=== PATIENT | male | born 1980 | race Caucasian/White ===

== ENCOUNTER 2018-03-03 22:08 | Emergency (ER) | payer SELFPAY ==
[2018-03-03 22:15] VITALS: BP 141/72; PULSE 91; RESP 20; TEMP 36.8; O2SAT 98
--- NOTE | 2018-03-03 22:19 | DI.RAD.S_ITS ---
PROCEDURE: XR CHEST 1V INDICATIONS: chest pain TECHNIQUE: One view of the chest was acquired. COMPARISON: None. FINDINGS: Surgical changes and devices: None. Lungs and pleura: No pleural effusions or pneumothorax. Lungs are clear. Mediastinum: Mediastinal contours appear normal. Heart size is normal. Bones and chest wall: No suspicious bony lesions. Overlying soft tissues appear unremarkable. IMPRESSION: No acute disease. Dictated by: Gonzalo Mckeon M.D. on 03/04/2018 at 7:05 Approved by: Gonzalo Mckeon M.D. on 03/04/2018 at 7:05
[2018-03-03 22:34] LABS: Add Manual Diff / Slide Review NO; Basophils Percent Auto 0.4 % (0-2); Eosinophils Percent Auto 0.9 % (2-4); Hematocrit 46.5 % (41-53); Hemoglobin 15.8 g/dL (13.5-17.5); INR 1.1 (0.9-1.3); Lymphocytes Percent Auto 37.5 % (25-40); Mean Corpuscular Hemoglobin 30.9 PG (26-34); Mean Corpuscular Volume 90.9 fL (80-100); Monocytes Percent Auto 7.8 % (3-14); Neutrophils Absolute Auto 3400 /uL (3000-5900); Neutrophils Percent Auto 53.4 % (50-75); Platelet Count 228 X10^3/uL (150-400); Prothrombin Time 11.6 SECONDS (10.1-12.7); Red Blood Cell Count 5.11 X10^6/uL (4.5-5.9); White Blood Cell Count 6.4 X10^3/uL (4.5-11.0)
[2018-03-03 22:36] LABS: PTT Partial Thromboplastin Tim 31 SECONDS (26.4-36.2)
[2018-03-03 22:38] LABS: Alanine Aminotransferase 34 IU/L (21-72); Albumin 4.7 g/dL (3.5-5.0); Albumin Globulin Ratio 1.6 (1.0-2.8); Alkaline Phosphatase 48 U/L (38-126); Aspartate Aminotransferase 29 IU/L (17-59); BUN Creatinine Ratio 12.9 (6-22); Bilirubin Total 0.6 mg/dL (0.2-1.3); Blood Urea Nitrogen 9 mg/dL (9-20); Calcium 9.6 mg/dL (8.4-10.2); Carbon Dioxide 29 mmol/L (22-32); Chloride 100 mmol/L (98-107); Creatine Kinase 239 U/L (55-170); Estimated Glomerular Filt Rate > 60.0 mL/min (>60); Glucose 84 mg/dL (70-100); HEMOLYSIS < 15 (0-50); Lipase 77 U/L (23-300); Potassium 3.7 mmol/L (3.4-5.1); Sodium 142 mmol/L (137-145); Total Protein 7.7 g/dL (6.3-8.2)
[2018-03-03 22:53] LABS: CKMB % Relative Index 0.9 % (1.5-5.0); Creatine Kinase MB 2.14 ng/mL (<2.37)
[2018-03-03 22:56] LABS: Troponin I < 0.012 ng/mL (0.01-0.034)
[2018-03-03 23:00] VITALS: BP 135/94; PULSE 68; RESP 12; O2SAT 99
[2018-03-03] MEDS: ONDANSETRON 4 MG/2 ML INJ IV (23:20)
[2018-03-03] MEDS: SODIUM CHLORIDE 0.9% 1,000 ML 1000 ML IV (23:20)
[2018-03-03] MEDS: KETOROLAC 60 MG/2 ML VIAL 15 MG IV (23:20)
[2018-03-03 23:49] VITALS: BP 121/94; PULSE 58; O2SAT 100
--- NOTE | 2018-03-04 04:54 | ED.CHESTPAIN ---
HPI - Chest Pain General Chief Complaint: Chest Pain Stated Complaint: Chest Pain Time Seen by Provider: 03/03/18 22:18 Source: patient Mode of arrival: ambulatory Limitations: no limitations History of Present Illness HPI narrative: 37-year-old smoker presents with a chief complaint of left anterior chest pain for the past few days. He states the pain is sharp and stabbing in nature but denies any provocation or palliation. He denies shortness of breath but states he is a bit nauseated and occasionally lightheaded. He recently had upper respiratory complaints including runny nose, sneezing, sore throat and cough but the symptoms are largely improved. He denies recent travel, injury or history of clots. MD complaint: chest pain Duration: intermittent Pain location: left chest Severity: mild Quality: sharp Pain radiation: none Relieving factors: nothing Exacerbating factors: nothing Context: recent illness Associated symptoms: cough Treatments prior to arrival chest pain: none Review of Systems Review of Systems All systems reviewed & are unremarkable except as noted in HPI and below Constitutional Denies chills, Denies fever(s), Denies lethargy and Denies weakness Eyes Denies change in vision, Denies eye discharge, Denies irritation and Denies loss of vision ENT Ears, Nose, Mouth, and Throat: Denies change in voice, Denies neck pain and Denies sore throat Cardiovascular Reports chest pain, Denies irregular heart rhythm, Denies lightheadedness, Denies palpitations, Denies dyspnea, Denies dyspnea on exertion and Denies orthopnea Respiratory Denies cough, Denies dyspnea, Denies dyspnea on exertion and Denies wheezing Gastrointestinal Gastrointestinal: Denies abdominal pain, Denies change in bowel habits, Denies diarrhea, Denies nausea and Denies vomiting Genitourinary Denies hematuria, Denies flank pain, Denies urinary incontinence and Denies urinary urgency Musculoskeletal Denies neck pain Integumentary/Breasts Denies pruritus, Denies erythema, Denies rash and Denies wounds Neurologic Denies confusion, Denies loss of vision and Denies weakness Psychiatric Denies anxiety, Denies confusion, Denies depression, Denies homicidal ideation and Denies suicidal ideation Endocrine Denies palpitations Hematologic/Lymphatic Denies easy bruising Allergic/Immunologic Denies wheezing [facility] Social History Smoking Status: Current every day smoker Exam Narrative Exam Narrative: 37-year-old male resting comfortably, a bit anxious but not in obvious distress Initial Vital Signs Initial Vital Signs: Vital Signs Temperature 98.2 F 03/03/18 22:15 Pulse Rate 91 H 03/03/18 22:15 Respiratory Rate 20 03/03/18 22:15 Blood Pressure 141/72 H 03/03/18 22:15 Pulse Oximetry 98 03/03/18 22:15 Const General: cooperative and well developed Nutritional Appearance: well nourished Orientation: alert, awake, oriented x3 and not confused [facility] Head: normocephalic and atraumatic Ears: external ears normal and TM's normal bilaterally Nose: external nose normal and No nasal discharge Face and sinus: sinuses nontender, face symmetric, no sinus tenderness and No dry mucous membranes Mouth: oral mucosae normal and moist mucous membranes Teeth and gingiva: dentition normal Throat: tonsils normal and uvula midline Eyes General: appearance normal, both eyes and all related structures Eyelids: eyelids normal Conjunctivae: conjunctivae normal Sclera: sclerae normal Pupils: PERRL EOM: EOM intact bilaterally Neck Neck: normal visual inspection, trachea midline, No lymphadenopathy, No midline deformity and No JVD Lymphatic: No lymphedema Chest Chest: normal inspection of the chest Resp Effort & Inspection: normal respiratory effort, able to speak in complete sentences, no respiratory distress and no use of accessory muscles Auscultation: clear to auscultation bilaterally, no rales, no rhonchi and no wheezes Cardio Rate: regular rate Rhythm: regular rhythm Heart Sounds: no click, no gallops, no murmurs and no rubs Pulses: normal peripheral pulses GI Inspection: non-distended Palpation: soft, no hepatosplenomegaly, No guarding, No pulsatile mass and No tender Auscultation: normal bowel sounds Back/Spine/Pelvis Back: No CVA tenderness Cervical Spine: cervical ROM normal and No pain with cervical ROM Thoracic/Lumbar Spine: thoracic and lumbar spine normal to inspection Skin General: no rashes or lesions noted, No jaundice and No petechiae Neuro General: alert, oriented x3, gait normal and no focal motor deficits Speech: speech normal Extrem General: full ROM, no clubbing, cyanosis or edema, no pedal edema and no calf tenderness Psych Appearance: well kempt Mental Status: mental status grossly normal Attitude: cooperative Thought Content: normal and suicidality Judgment: judgment good Scores HEART Score Heart Score history: Slightly Suspicious Heart Score EKG: Normal Heart Score Age: < 45 years old Heart Score risk factors: 1-2 risk factors Heart Score troponin: < or = to normal limit Heart Score Total: 1 Course Orders Ordered: ED Orders 03/03/18 22:19 XR chest 1V Stat EKG-12 Lead Stat 03/03/18 22:20 Complete Blood Count AUTO DIFF Stat Comprehensive Metabolic Panel Stat Lipase Stat Partial Thromboplastin Time Stat Prothrombin Time INR Stat Troponin & CK Cardiac Panel Stat Discontinued Medications Sodium Chloride (Normal Saline 0.9%) 1,000 mls @ 1,000 mls/hr IV BOLUS ONE Stop: 03/04/18 00:05 Last Infusion: 03/03/18 23:58 Dose: 0 mls/hr Admin: 03/03/18 23:20 Dose: 1,000 mls/hr Ketorolac Tromethamine (Toradol) 15 mg IV NOW ONE Stop: 03/03/18 23:07 Last Admin: 03/03/18 23:20 Dose: 15 mg Ondansetron HCl (Zofran) 4 mg IV Q4HR PRN PRN Reason: Nausea And Vomiting Last Admin: 03/03/18 23:20 Dose: 4 mg Vital Signs - 8 hr 03/03/18 22:15 03/03/18 23:00 03/03/18 23:49 Temperature 98.2 F Pulse Rate 91 H 68 58 L Respiratory Rate 20 12 Blood Pressure 141/72 H Blood Pressure [Left Arm] 135/94 H 121/94 H Pulse Oximetry 98 99 100 MDM - Chest Pain Differential Diagnosis Likely fracture of rib, pneumothorax, stable angina, unstable angina pectoris, atypical chest pain, st elevation myocardial infarction, costochondritis and chest pain Medical Records Data Attestation: I reviewed the patient's medical records. Lab Data Attestation: I reviewed the patient's lab results. Result diagrams: 03/03/18 22:20 03/03/18 22:20 Lab Results 03/03/18 03/03/18 03/03/18 Range/Units 22:20 22:20 22:20 WBC 6.4 (4.5-11.0) X10^3/uL RBC 5.11 (4.5-5.9) X10^6/uL Hgb 15.8 (13.5-17.5) g/dL Hct 46.5 (41-53) % MCV 90.9 (80-100) fL MCH 30.9 (26-34) PG MCHC 34.0 (30-36) % RDW 13.0 (11.6-14.8) % Plt Count 228 (150-400) X10^3/uL Neut % (Auto) 53.4 (50-75) % Lymph % (Auto) 37.5 (25-40) % [place] % (Auto) 7.8 (3-14) % Eos % (Auto) 0.9 L (2-4) % Baso % (Auto) 0.4 (0-2) % Neut # (Auto) 3400 (5996-6823) /uL PT 11.6 (10.1-12.7) SECONDS INR 1.1 (0.9-1.3) APTT 31 (26.4-36.2) SECONDS Sodium 142 (137-145) mmol/L Potassium 3.7 (3.4-5.1) mmol/L Chloride 100 (98-107) mmol/L Carbon Dioxide 29 (22-32) mmol/L BUN 9 (9-20) mg/dL Creatinine 0.70 (0.66-1.25) mg/dL Estimated GFR > 60.0 (>60) mL/min BUN/Creatinine Ratio 12.9 (6-22) Glucose 84 (70-100) mg/dL Calcium 9.6 (8.4-10.2) mg/dL Total Bilirubin 0.6 (0.2-1.3) mg/dL AST 29 (17-59) IU/L ALT 34 (21-72) IU/L Alkaline Phosphatase 48 (38-126) U/L Total Creatine Kinase 239 H (55-170) U/L CK-MB (CK-2) 2.14 (<2.37) ng/mL CK-MB (CK-2) Rel Index 0.9 L (1.5-5.0) % Troponin I < 0.012 (0.01-0.034) ng/mL Total Protein 7.7 (6.3-8.2) g/dL Albumin 4.7 (3.5-5.0) g/dL Globulin 3.0 (1.7-4.1) g/dL Albumin/Globulin Ratio 1.6 (1.0-2.8) Lipase 77 (23-300) U/L Imaging Data Chest x-ray: Attestation: I personally reviewed and interpreted this imaging study as follows: My impression: NAP ECG Data Attestation: I personally reviewed and interpreted this ECG as follows: Prior ECG tracings: not available for review Interpretation: EKG is normal sinus rhythm and free of any signs of ischemia or ectopy. Discharge Plan Departure Patient Disposition: Home Clinical Impression: Atypical chest pain Discharge Date/Time: 03/03/18 23:59 Interventions: ED Discharge Assessment Last Done: 03/03/18 23:59 Instructions: DI for Atypical Chest Pain Activity Restrictions/Additional Instructions: *You have been diagnosed with [ atypical chest pain ] *What to do: *Take medications as directed: Tylenol or Motrin for pain *Follow up with your primary care provider in 2-3 days, call for an appointment. Let them know you were seen in the Emergency Department and that we ask that you be seen in follow up *Return to ER if you should have any new, worsening or concerning symptoms Referrals: Jamar Cuellar MD [Primary Care Provider] -
== END 2018-03-03 23:59 | disposition home or self-care (01) ==
PROVIDERS: Emergency Provider Emergency Medicine; Family Provider Family Medicine; PCP Family Medicine
DX: R07.89 Other chest pain (principal)
CPT/HCPCS: 36591; 71045; 80053; 82550; 82553; 83690; 84484; 85025; 85610; 85730; 93005; 96361; 96374; 96375; 99283; 99285; J1885; J2405

== ENCOUNTER 2020-02-27 10:49 | Observation (INO) | payer OTHER, SELFPAY ==
[2020-02-27] VITALS (26 sets, daily range): BP systolic 93–148; BP diastolic 43–85; PULSE 55–74; RESP 12–24; TEMP 36.6–37.5; O2SAT 91–100; BMI 25.0
--- NOTE | 2020-02-27 11:16 | ED_ITS ---
HPI - Abdominal Pain <OMAR Peraza- - Last Filed: 02/27/20 16:15> General Chief Complaint: Abdominal Pain Stated Complaint: vomiting/ stomach pain unable to keep down Time Seen by Provider: 02/27/20 11:01 Source: patient Mode of arrival: Wheelchair Limitations: no limitations History of Present Illness HPI narrative: The patient is a 39-year-old male current everyday smoker who pre sents with a chief complaint of abdominal pain for the past 2-3 days. He states it is right in the center of his gut, periumbilical. He denies any fevers muscle aches or chills. He states he is vomiting so often that he cannot keep down any food or fluids. Off of his on Friday. States he has vomited too many times to count. He denies any medical history other than old diagnosis of hypertension for which she takes no medications and states he takes Synthroid. His primary care provider is Dr. Cuellar, he currently lives on [address] which is why he delayed care for several days. He states the pain comes and goes, when his pain is present he is in excruciating 10/10 pain. He took Pepto-Bismol yesterday to try to feel better. Related Data Home Medications Medication Instructions Recorded Confirmed levothyroxine 100 mcg PO QAM 02/27/20 02/27/20 Allergies Allergy/AdvReac Type Severity Reaction Status Date / Time kelsy Allergy Verified 02/27/20 14:28 Review of Systems <XAVIER PerazaP- - Last Filed: 02/27/20 16:15> Review of Systems Narrative: GENERAL: Denies chills, fatigue, malaise, fever, sweats. HEENT: Denies sinus pain, ear pain, sore throat, difficulty swallowing, dizziness. RESPIRATORY: Denies dyspnea, cough, wheezing, hemoptysis, sputum. CARDIOVASCULAR: Denies chest pain, palpitations, orthopnea, edema, GASTROINTESTINAL: See HPI : Denies dysuria, frequency, incontinence, hematuria, urinary retention. MUSCULOSKELETAL: denies weakness, joint pain, or bony pain SKIN: Denies rash, skin lesions, or other NEUROLOGIC: Denies weakness, headache, numbness, change in speech, confusion, seizures, incoordination. PSYCHIATRIC: No concerning psychosocial issues. 12 point review of systems is negative except for those stated above Patient History <LAVINIA Peraza - Last Filed: 02/27/20 16:15> Medical History Hypothyroid (Acute) Social History household members: spouse Smoking Status: Current every day smoker Smoking Status: Current every day smoker Substance Use Type: marijuana Exam <LAVINIA Peraza - Last Filed: 02/27/20 16:15> Narrative Exam Narrative: GENERAL: This is a well-nourished, well-developed patient, appears uncomfortable HEAD: Atraumatic. Normocephalic. No temporal or scalp tenderness. EYES: Pupils equal round and reactive. Extraocular motions intact. No scleral icterus. No injection or drainage. ENT: Nose without bleeding, purulent drainage or septal hematoma. Throat without erythema, tonsillar hypertrophy or exudate. Uvula midline. Airway patent. NECK: Trachea midline. No JVD or lymphadenopathy. Supple, nontender, no menin geal signs. CARDIOVASCULAR: Regular rate and rhythm RESPIRATORY: Clear to auscultation. Breath sounds equal bilaterally. No wheezes, rales, or rhonchi. No increased respiratory effort. No accessory muscle use. GASTROINTESTINAL: Abdomen flat, tender to palpation with periumbilical guarding, guarding all quadrants, no palpable masses. Acute abdomen noted. EXTREMITIES: No clubbing, cyanosis, or edema. No joint tenderness, effusion, or edema noted. BACK: Nontender without deformity or crepitance. No flank tenderness. NEURO: AOx3. SKIN: No rash or erythema on visible skin Initial Vital Signs Initial Vital Signs: Vital Signs Temperature 98.4 F 02/27/20 11:00 Pulse Rate 62 02/27/20 11:00 Respiratory Rate 16 02/27/20 11:00 Blood Pressure 148/85 H 02/27/20 11:00 Pulse Oximetry 100 02/27/20 11:00 <Shelton Vale DO - Last Filed: 02/27/20 17:01> Initial Vital Signs Initial Vital Signs: Vital Signs Temperature 98.4 F 02/27/20 11:00 Pulse Rate 62 02/27/20 11:00 Respiratory Rate 16 02/27/20 11:00 Blood Pressure 148/85 H 02/27/20 11:00 Pulse Oximetry 100 02/27/20 11:00 Course <Breanne FitzgeraldOMAR- - Last Filed: 02/27/20 16:15> Orders Ordered: ED Orders 02/27/20 11:14 EKG-12 Lead Stat 02/27/20 11:32 Amylase Stat Complete Blood Count AUTO DIFF Stat Comprehensive Metabolic Panel Stat Lactate (Lactic Acid) Stat Lipase Stat 02/27/20 11:50 CT abdomen pelvis w con Stat 02/27/20 13:25 COVID19 -ED/INPAT/OR/L&D Stat Acetaminophen (Tylenol) 650 mg PO Q6HR PRN PRN Reason: Pain, Mild (1-3) Diphenhydramine HCl (Benadryl) 25 mg IV Q6HR PRN PRN Reason: Itching Docusate Sodium (Colace) 100 mg PO BID PRN PRN Reason: Constipation Heparin Sodium (Porcine) (Heparin) 5,000 unit SUBCUT BID ANNIE Hydromorphone HCl (Dilaudid) 0.5 mg IV Q4HR PRN PRN Reason: Breakthrough Pain Sodium Chloride (Normal Saline 0.9%) 1,000 mls @ 100 mls/hr IV CONT ANNIE Ketorolac Tromethamine (Toradol) 15 mg IV Q6H PRN PRN Reason: Pain, Moderate (4-6) Stop: 03/03/20 15:58 Naloxone HCl (Narcan) 0.2 mg IV Q2MIN PRN PRN Reason: Opiate Reversal Ondansetron HCl (Zofran) 4 mg IV Q4HR PRN PRN Reason: Nausea And Vomiting Oxycodone HCl (Percolone) 5 mg PO Q6HR PRN PRN Reason: Pain, Moderate (4-6) Discontinued Medications Bupivacaine HCl/Epinephrine Bitart (Sensorcaine 0.25% W/ Epi (Pf)) 30 ml INJ NOW ONE Stop: 02/27/20 14:56 Last Admin: 02/27/20 14:55 Dose: 30 ml Documented by: CELESTE Diphenhydramine HCl (Benadryl) 25 mg IV NOW ONE Stop: 02/27/20 11:50 Last Admin: 02/27/20 12:44 Dose: 25 mg Documented by: KRYSTINA Fentanyl (Sublimaze) 0 mcg IV Q5M PRN PRN Reason: Pain, Moderate (4-6) Hydromorphone HCl (Dilaudid) 1 mg IV NOW ONE Stop: 02/27/20 12:39 Last Admin: 02/27/20 12:44 Dose: 1 mg Documented by: KRYSTINA Hydromorphone HCl (Dilaudid) 0 mg IV Q5M PRN PRN Reason: Pain, Severe (7-10) Sodium Chloride (Normal Saline 0.9%) 1,000 mls @ 1,000 mls/hr IV BOLUS ONE Stop: 02/27/20 12:13 Last Infusion: 02/27/20 14:08 Dose: 0 mls/hr Documented by: Admin: 02/27/20 11:40 Dose: 1,000 mls/hr Documented by: KRYSTINA Piperacillin/Tazobactam/Dextrose (Zosyn) 3.375 gm in 50 mls @ 100 mls/hr IV NOW ONE Stop: 02/27/20 14:05 Last Infusion: 02/27/20 14:18 Dose: 0 mls/hr Documented by: Admin: 02/27/20 13:44 Dose: 100 mls/hr Documented by: KRYSTINA Sodium Chloride (Normal Saline 0.9%) 1,000 mls @ 1,000 mls/hr IV BOLUS ONE Stop: 02/27/20 14:51 Last Admin: 02/27/20 14:08 Dose: Not Given Documented by: KRYSTINA Lactated Ringer's (Lactated Ringers) 1,000 mls @ 42 mls/hr IV CONT ANNIE Sodium Chloride (Normal Saline 0.9%) 1,000 mls @ 84 mls/hr IV CONT ANNIE Last Infusion: 02/27/20 16:58 Dose: 0 mls/hr Documented by: Admin: 02/27/20 14:21 Dose: 84 mls/hr Documented by: JAKUB Metoclopramide HCl (Reglan) 10 mg IV NOW ONE Stop: 02/27/20 11:49 Last Admin: 02/27/20 12:45 Dose: 10 mg Documented by: KRYSTINA Metoclopramide HCl (Reglan) 10 mg IV NOW PRN PRN Reason: Nausea And Vomiting Morphine Sulfate (Morphine) 4 mg IV NOW ONE Stop: 02/27/20 11:15 Last Admin: 02/27/20 11:40 Dose: 4 mg Documented by: KRYSTINA Ondansetron HCl (Zofran) 4 mg IV NOW ONE Stop: 02/27/20 11:15 Last Admin: 02/27/20 11:40 Dose: 4 mg Documented by: KRYSTINA Ondansetron HCl (Zofran) 4 mg IV NOW PRN PRN Reason: Nausea And Vomiting Oxycodone/Acetaminophen (Percocet 5/325) 1 tab PO PACUNOW PRN PRN Reason: Mild or Moderate Pain Pantoprazole Sodium (Protonix) 40 mg IV NOW ONE Stop: 02/27/20 11:28 Last Admin: 02/27/20 11:40 Dose: 40 mg Documented by: KRYSTINA Vital Signs Vital signs: Vital Signs - 8 hr 02/27/20 11:00 02/27/20 12:14 02/27/20 12:30 Temperature 98.4 F Pulse Rate 62 66 63 Respiratory Rate 16 12 16 Blood Pressure 148/85 H 109/56 L Pulse Oximetry 100 100 97 02/27/20 12:34 02/27/20 13:16 02/27/20 13:17 Temperature Pulse Rate 64 68 61 Respiratory Rate 20 12 Blood Pressure 122/67 131/76 Pulse Oximetry 100 100 02/27/20 13:30 02/27/20 14:00 02/27/20 14:21 Temperature 99 F Pulse Rate 70 63 60 Respiratory Rate 23 24 17 Blood Pressure 105/52 L 121/68 Pulse Oximetry 97 100 100 <Shelton Vale DO - Last Filed: 02/27/20 17:01> Orders Ordered: ED Orders 02/27/20 11:14 EKG-12 Lead Stat 02/27/20 11:32 Amylase Stat Complete Blood Count AUTO DIFF Stat Comprehensive Metabolic Panel Stat Lactate (Lactic Acid) Stat Lipase Stat 02/27/20 11:50 CT abdomen pelvis w con Stat 02/27/20 13:25 COVID19 -ED/INPAT/OR/L&D Stat Acetaminophen (Tylenol) 650 mg PO Q6HR PRN PRN Reason: Pain, Mild (1-3) Diphenhydramine HCl (Benadryl) 25 mg IV Q6HR PRN PRN Reason: Itching Docusate Sodium (Colace) 100 mg PO BID PRN PRN Reason: Constipation Heparin Sodium (Porcine) (Heparin) 5,000 unit SUBCUT BID ANNIE Hydromorphone HCl (Dilaudid) 0.5 mg IV Q4HR PRN PRN Reason: Breakthrough Pain Sodium Chloride (Normal Saline 0.9%) 1,000 mls @ 100 mls/hr IV CONT ANNIE Ketorolac Tromethamine (Toradol) 15 mg IV Q6H PRN PRN Reason: Pain, Moderate (4-6) Stop: 03/03/20 15:58 Naloxone HCl (Narcan) 0.2 mg IV Q2MIN PRN PRN Reason: Opiate Reversal Ondansetron HCl (Zofran) 4 mg IV Q4HR PRN PRN Reason: Nausea And Vomiting Oxycodone HCl (Percolone) 5 mg PO Q6HR PRN PRN Reason: Pain, Moderate (4-6) Discontinued Medications Bupivacaine HCl/Epinephrine Bitart (Sensorcaine 0.25% W/ Epi (Pf)) 30 ml INJ NOW ONE Stop: 02/27/20 14:56 Last Admin: 02/27/20 14:55 Dose: 30 ml Documented by: CELESTE Diphenhydramine HCl (Benadryl) 25 mg IV NOW ONE Stop: 02/27/20 11:50 Last Admin: 02/27/20 12:44 Dose: 25 mg Documented by: KRYSTINA Fentanyl (Sublimaze) 0 mcg IV Q5M PRN PRN Reason: Pain, Moderate (4-6) Hydromorphone HCl (Dilaudid) 1 mg IV NOW ONE Stop: 02/27/20 12:39 Last Admin: 02/27/20 12:44 Dose: 1 mg Documented by: KRYSTINA Hydromorphone HCl (Dilaudid) 0 mg IV Q5M PRN PRN Reason: Pain, Severe (7-10) Sodium Chloride (Normal Saline 0.9%) 1,000 mls @ 1,000 mls/hr IV BOLUS ONE Stop: 02/27/20 12:13 Last Infusion: 02/27/20 14:08 Dose: 0 mls/hr Documented by: Admin: 02/27/20 11:40 Dose: 1,000 mls/hr Documented by: KRYSTINA Piperacillin/Tazobactam/Dextrose (Zosyn) 3.375 gm in 50 mls @ 100 mls/hr IV NOW ONE Stop: 02/27/20 14:05 Last Infusion: 02/27/20 14:18 Dose: 0 mls/hr Documented by: Admin: 02/27/20 13:44 Dose: 100 mls/hr Documented by: KRYSTINA Sodium Chloride (Normal Saline 0.9%) 1,000 mls @ 1,000 mls/hr IV BOLUS ONE Stop: 02/27/20 14:51 Last Admin: 02/27/20 14:08 Dose: Not Given Documented by: KRYSTINA Lactated Ringer's (Lactated Ringers) 1,000 mls @ 42 mls/hr IV CONT ANNIE Sodium Chloride (Normal Saline 0.9%) 1,000 mls @ 84 mls/hr IV CONT ANNIE Last Infusion: 02/27/20 16:58 Dose: 0 mls/hr Documented by: Admin: 02/27/20 14:21 Dose: 84 mls/hr Documented by: JAKUB Metoclopramide HCl (Reglan) 10 mg IV NOW ONE Stop: 02/27/20 11:49 Last Admin: 02/27/20 12:45 Dose: 10 mg Documented by: KRYSTINA Metoclopramide HCl (Reglan) 10 mg IV NOW PRN PRN Reason: Nausea And Vomiting Morphine Sulfate (Morphine) 4 mg IV NOW ONE Stop: 02/27/20 11:15 Last Admin: 02/27/20 11:40 Dose: 4 mg Documented by: KRYSTINA Ondansetron HCl (Zofran) 4 mg IV NOW ONE Stop: 02/27/20 11:15 Last Admin: 02/27/20 11:40 Dose: 4 mg Documented by: KRYSTINA Ondansetron HCl (Zofran) 4 mg IV NOW PRN PRN Reason: Nausea And Vomiting Oxycodone/Acetaminophen (Percocet 5/325) 1 tab PO PACUNOW PRN PRN Reason: Mild or Moderate Pain Pantoprazole Sodium (Protonix) 40 mg IV NOW ONE Stop: 02/27/20 11:28 Last Admin: 02/27/20 11:40 Dose: 40 mg Documented by: KRYSTINA Vital Signs Vital signs: Vital Signs - 8 hr 02/27/20 11:00 02/27/20 12:14 02/27/20 12:30 Temperature 98.4 F Pulse Rate 62 66 63 Respiratory Rate 16 12 16 Blood Pressure 148/85 H 109/56 L Pulse Oximetry 100 100 97 02/27/20 12:34 02/27/20 13:16 02/27/20 13:17 Temperature Pulse Rate 64 68 61 Respiratory Rate 20 12 Blood Pressure 122/67 131/76 Pulse Oximetry 100 100 02/27/20 13:30 02/27/20 14:00 02/27/20 14:21 Temperature 99 F Pulse Rate 70 63 60 Respiratory Rate 23 24 17 Blood Pressure 105/52 L 121/68 Pulse Oximetry 97 100 100 MDM - Abdominal Pain <Breanne Fitzgerald, POLICY ISSUE CLERK- - Last Filed: 02/27/20 16:15> Differential Diagnosis Differential diagnosis: Likely abdominal pain, acute appendicitis, constipation, pancreatitis and small bowel obstruction Lab Data Attestation: I reviewed the patient's lab results. Result diagrams: 02/27/20 11:32 02/27/20 11:32 Labs: Lab Results 02/27/20 02/27/20 02/27/20 Range/Units 11:32 11:32 11:32 WBC 14.0 H (4.5-11.0) X10^3/uL RBC 5.21 (4.5-5.9) X10^6/uL Hgb 16.0 (13.5-17.5) g/dL Hct 47.4 (41-53) % MCV 90.9 (80-100) fL MCH 30.7 (26-34) PG MCHC 33.7 (30-36) % RDW 12.5 (11.6-14.8) % Plt Count 313 (150-400) X10^3/uL Neut % (Auto) 84.2 H (50-75) % Lymph % (Auto) 8.3 L (25-40) % Coleman % (Auto) 7.2 (3-14) % Eos % (Auto) 0.0 L (2-4) % Baso % (Auto) 0.3 (0-2) % Neut # (Auto) 01575 H (3785-5671) /uL Lymph # (Auto) 1200 (3628-9239) /uL Coleman # (Auto) 1000 H (0-900) /uL Eos # (Auto) 0 (0-450) /uL Baso # (Auto) 0 (0-100) /uL Sodium 134 L (137-145) mmol/L Potassium 3.7 (3.4-5.1) mmol/L Chloride 90 L (98-107) mmol/L Carbon Dioxide 28 (22-32) mmol/L BUN 29 H (9-20) mg/dL Creatinine 0.82 (0.66-1.25) mg/dL Estimated GFR > 60.0 (>60) mL/min BUN/Creatinine Ratio 35.4 H (6-22) Glucose 122 H (70-100) mg/dL Lactate 2.7 H (0.7-2.1) mmol/L Calcium 9.8 (8.4-10.2) mg/dL Total Bilirubin 0.9 (0.2-1.3) mg/dL AST 47 (17-59) IU/L ALT 35 (<50) IU/L Alkaline Phosphatase 57 (38-126) U/L Total Protein 8.9 H (6.3-8.2) g/dL Albumin 5.1 H (3.5-5.0) g/dL Globulin 3.8 (1.7-4.1) g/dL Albumin/Globulin Ratio 1.3 (1.0-2.8) Amylase 118 H (30-110) U/L Lipase 209 (23-300) U/L COVID-19 PCR (Negative) 02/27/20 Range/Units 13:25 WBC (4.5-11.0) X10^3/uL RBC (4.5-5.9) X10^6/uL Hgb (13.5-17.5) g/dL Hct (41-53) % MCV (80-100) fL MCH (26-34) PG MCHC (30-36) % RDW (11.6-14.8) % Plt Count (150-400) X10^3/uL Neut % (Auto) (50-75) % Lymph % (Auto) (25-40) % Coleman % (Auto) (3-14) % Eos % (Auto) (2-4) % Baso % (Auto) (0-2) % Neut # (Auto) (7217-7157) /uL Lymph # (Auto) (4081-0166) /uL Coleman # (Auto) (0-900) /uL Eos # (Auto) (0-450) /uL Baso # (Auto) (0-100) /uL Sodium (137-145) mmol/L Potassium (3.4-5.1) mmol/L Chloride (98-107) mmol/L Carbon Dioxide (22-32) mmol/L BUN (9-20) mg/dL Creatinine (0.66-1.25) mg/dL Estimated GFR (>60) mL/min BUN/Creatinine Ratio (6-22) Glucose (70-100) mg/dL Lactate (0.7-2.1) mmol/L Calcium (8.4-10.2) mg/dL Total Bilirubin (0.2-1.3) mg/dL AST (17-59) IU/L ALT (<50) IU/L Alkaline Phosphatase (38-126) U/L Total Protein (6.3-8.2) g/dL Albumin (3.5-5.0) g/dL Globulin (1.7-4.1) g/dL Albumin/Globulin Ratio (1.0-2.8) Amylase (30-110) U/L Lipase (23-300) U/L COVID-19 PCR Negative (Negative) Point of care testing: Urine Dip Bedside Urine Glucose Negative Bedside Urine Bilirubin + 1 Bedside Urine Ketone ++ 40 Urine Specific [place] 1.025 Bedside Urine Occult Blood +/- Bedside Urine pH 6.0 Bedside Urine Protein + 30 Bedside Urine Urobilinogen - Negative Bedside Urine Nitrite - Negative Bedside Urine Leukocytes - Negative Esterase Imaging Data CT scan - abdomen/pelvis: Radiologist's Impression: [address] [place], [place] [id number] CT Scan Report Signed Patient: Devante Pina [facility]#: [id number] : 1980Acct:[id number] Age/Sex: 39 / MDate of Service: 02/27/20 Loc: ED Accession Number: [id number] Procedure: CT abdomen pelvis w con Ordering Provider: Breanne Fitzgerald POLICY ISSUE CLERK- PROCEDURE: CT ABDOMEN PELVIS W CON INDICATIONS: abd pain, vomiting TECHNIQUE: After the administration of intravenous contrast, 5 mm thick sections acquired f rom the diaphragm to the symphysis. 5 mm coronal and sagittal reformats were acquired. For radiation dose reduction, the following was used: automated exposure control, adjustment of mA and/or kV according to patient size. COMPARISON: [facility], CR, XR CHEST 1V, 03/03/2018, 22:21. FINDINGS: Image quality: Excellent. ABDOMEN: Lung bases: Lung bases are clear. Heart size is normal. Solid organs: Liver is normal in size and enhancement. Gallbladder demonstrates no significant abnormality. Biliary system is non dilated. Pancreas enhances normally. Spleen is normal in size and enhancement. No adrenal nodules. Kidneys demonstrate normal size and enhancement, without hydronephrosis. Peritoneum and bowel: Dilated fluid-filled loops are seen within the central ab domen inferiorly, which measure up to 3.7 cm. Proximal and distal to this, the small bowel loops demonstrate normal caliber. There is a potential swirl of mesenteric vessels seen adjacent to the prominent loops of bowel. No madeleine bowel wall thickening can be seen. No colonic abnormality is seen. No free air or significant free fluid can be seen. No loculated abscess is seen. Nodes and vessels: No retroperitoneal or mesenteric adenopathy by size criteria. Aorta and inferior vena cava are normal in size. The SMA is patent. Normal flow is seen within the portal vein. Miscellaneous: No ventral hernias. PELVIS: Genitourinary: Bladder wall thickness is normal. Miscellaneous: No inguinal hernias or adenopathy. Bones: No suspicious bony lesions. No vertebral body compression fractures. There is transitional lumbar anatomy, with L5 level that is highly sacralized on the left side. Mild levoconvex scoliotic curvature is noted. IMPRESSION: Prominent loops of fluid-filled small bowel can be seen within the central mid abdomen. Please consider internal hernia. 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 Dictated by: Natan Garcia M.D. on 02/27/2020 at 11:15 Approved by: Natan Garcia M.D. on 02/27/2020 at 11:27 ECG Data Attestation: I personally reviewed and interpreted this ECG as follows: Interpretation: Sinus rhythm. Ventricular rate 65. P.r. interval 114. MDM Narrative Medical decision making narrative: The patient is a 39-year-old male who presents with a chief complaint of abdominal pain difficulty keeping anything down since Friday. He is noted to have an acute abdomen on exam, leukocytosis to 14, elevated lactate at 2.7. CT shows concern for internal hernia. Spoke with Dr. Gómez who came to evaluate the patient and elected to bring him to the operating room. Coronavirus test came back negative. Patient was given IV fluids in the emergency department as well as pain and nausea medications. States understanding and appreciation for care. He has been hemodynamically stable throughout his stay, afebrile, normotensive. Patient transferred to OR staff at 2:10 p.m.. <Shelton Vale DO - Last Filed: 02/27/20 17:01> Lab Data Labs: Lab Results 02/27/20 02/27/20 02/27/20 Range/Units 11:32 11:32 11:32 WBC 14.0 H (4.5-11.0) X10^3/uL RBC 5.21 (4.5-5.9) X10^6/uL Hgb 16.0 (13.5-17.5) g/dL Hct 47.4 (41-53) % MCV 90.9 (80-100) fL MCH 30.7 (26-34) PG MCHC 33.7 (30-36) % RDW 12.5 (11.6-14.8) % Plt Count 313 (150-400) X10^3/uL Neut % (Auto) 84.2 H (50-75) % Lymph % (Auto) 8.3 L (25-40) % Coleman % (Auto) 7.2 (3-14) % Eos % (Auto) 0.0 L (2-4) % Baso % (Auto) 0.3 (0-2) % Neut # (Auto) 27907 H (7256-7557) /uL Lymph # (Auto) 1200 (6146-3815) /uL Coleman # (Auto) 1000 H (0-900) /uL Eos # (Auto) 0 (0-450) /uL Baso # (Auto) 0 (0-100) /uL Sodium 134 L (137-145) mmol/L Potassium 3.7 (3.4-5.1) mmol/L Chloride 90 L (98-107) mmol/L Carbon Dioxide 28 (22-32) mmol/L BUN 29 H (9-20) mg/dL Creatinine 0.82 (0.66-1.25) mg/dL Estimated GFR > 60.0 (>60) mL/min BUN/Creatinine Ratio 35.4 H (6-22) Glucose 122 H (70-100) mg/dL Lactate 2.7 H (0.7-2.1) mmol/L Calcium 9.8 (8.4-10.2) mg/dL Total Bilirubin 0.9 (0.2-1.3) mg/dL AST 47 (17-59) IU/L ALT 35 (<50) IU/L Alkaline Phosphatase 57 (38-126) U/L Total Protein 8.9 H (6.3-8.2) g/dL Albumin 5.1 H (3.5-5.0) g/dL Globulin 3.8 (1.7-4.1) g/dL Albumin/Globulin Ratio 1.3 (1.0-2.8) Amylase 118 H (30-110) U/L Lipase 209 (23-300) U/L COVID-19 PCR (Negative) 02/27/20 Range/Units 13:25 WBC (4.5-11.0) X10^3/uL RBC (4.5-5.9) X10^6/uL Hgb (13.5-17.5) g/dL Hct (41-53) % MCV (80-100) fL MCH (26-34) PG MCHC (30-36) % RDW (11.6-14.8) % Plt Count (150-400) X10^3/uL Neut % (Auto) (50-75) % Lymph % (Auto) (25-40) % Coleman % (Auto) (3-14) % Eos % (Auto) (2-4) % Baso % (Auto) (0-2) % Neut # (Auto) (6483-5903) /uL Lymph # (Auto) (5337-0591) /uL Coleman # (Auto) (0-900) /uL Eos # (Auto) (0-450) /uL Baso # (Auto) (0-100) /uL Sodium (137-145) mmol/L Potassium (3.4-5.1) mmol/L Chloride (98-107) mmol/L Carbon Dioxide (22-32) mmol/L BUN (9-20) mg/dL Creatinine (0.66-1.25) mg/dL Estimated GFR (>60) mL/min BUN/Creatinine Ratio (6-22) Glucose (70-100) mg/dL Lactate (0.7-2.1) mmol/L Calcium (8.4-10.2) mg/dL Total Bilirubin (0.2-1.3) mg/dL AST (17-59) IU/L ALT (<50) IU/L Alkaline Phosphatase (38-126) U/L Total Protein (6.3-8.2) g/dL Albumin (3.5-5.0) g/dL Globulin (1.7-4.1) g/dL Albumin/Globulin Ratio (1.0-2.8) Amylase (30-110) U/L Lipase (23-300) U/L COVID-19 PCR Negative (Negative) Point of care testing: Urine Dip Bedside Urine Glucose Negative Bedside Urine Bilirubin + 1 Bedside Urine Ketone ++ 40 Urine Specific [place] 1.025 Bedside Urine Occult Blood +/- Bedside Urine pH 6.0 Bedside Urine Protein + 30 Bedside Urine Urobilinogen - Negative Bedside Urine Nitrite - Negative Bedside Urine Leukocytes - Negative Esterase Discharge Plan Departure Patient Disposition: Admitted to Surgery Clinical Impression: Acute abdominal pain, Abnormal CT scan, gastrointestinal tract, Elevated lactic acid level Leukocytosis Qualifiers: Leukocytosis type: unspecified Qualified Code(s): D72.829 - Elevated white bl ood cell count, unspecified Discharge Date/Time: 02/27/20 14:10 Admit Date/Time: 02/27/20 14:21 Admit Provider: Hanane Gómez <Shelton Vale DO - Last Filed: 02/27/20 17:01> Cosign ED Attending Cosignature Attestation: I was immediately available in the department for consultation. This documentation has been reviewed and I agree with assessment and plan. Supervised by Shelton Vale DO
[2020-02-27 11:38] LABS: Add Manual Diff / Slide Review NO; Basophils Absolute Auto 0 /uL (0-100); Basophils Percent Auto 0.3 % (0-2); Eosinophils Absolute Auto 0 /uL (0-450); Hematocrit 47.4 % (41-53); Lymphocytes Absolute Auto 1200 /uL (1100-4500); Lymphocytes Percent Auto 8.3 % (25-40); Mean Corpuscular HGB Conc 33.7 % (30-36); Mean Corpuscular Hemoglobin 30.7 PG (26-34); Mean Corpuscular Volume 90.9 fL (80-100); Monocytes Absolute Auto 1000 /uL (0-900); Monocytes Percent Auto 7.2 % (3-14); Neutrophils Absolute Auto 11800 /uL (1500-7000); Neutrophils Percent Auto 84.2 % (50-75); Platelet Count 313 X10^3/uL (150-400); Red Blood Cell Count 5.21 X10^6/uL (4.5-5.9); Red Cell Distribution Width 12.5 % (11.6-14.8)
[2020-02-27] MEDS: SODIUM CHLORIDE 0.9% 1,000 ML 1000 ML IV (11:40)
[2020-02-27] MEDS: PANTOPRAZOLE 40 MG VIAL IV (11:40)
[2020-02-27] MEDS: ONDANSETRON 4 MG/2 ML INJ IV (11:40)
[2020-02-27] MEDS: MORPHINE 4 MG/ML INJ IV (11:40)
[2020-02-27 11:50] LABS: Alanine Aminotransferase 35 IU/L (<50); Albumin 5.1 g/dL (3.5-5.0); Albumin Globulin Ratio 1.3 (1.0-2.8); Alkaline Phosphatase 57 U/L (38-126); Amylase 118 U/L (30-110); Aspartate Aminotransferase 47 IU/L (17-59); BUN Creatinine Ratio 35.4 (6-22); Bilirubin Total 0.9 mg/dL (0.2-1.3); Blood Urea Nitrogen 29 mg/dL (9-20); Calcium 9.8 mg/dL (8.4-10.2); Carbon Dioxide 28 mmol/L (22-32); Chloride 90 mmol/L (98-107); Estimated Glomerular Filt Rate > 60.0 mL/min (>60); Globulin 3.8 g/dL (1.7-4.1); Glucose 122 mg/dL (70-100); HEMOLYSIS < 15 (0-50); Lipase 209 U/L (23-300); Potassium 3.7 mmol/L (3.4-5.1); Sodium 134 mmol/L (137-145); Total Protein 8.9 g/dL (6.3-8.2)
--- NOTE | 2020-02-27 11:50 | DI.CT.S_ITS ---
PROCEDURE: CT ABDOMEN PELVIS W CON INDICATIONS: abd pain, vomiting TECHNIQUE: After the administration of intravenous contrast, 5 mm thick sections acquired from the diaphragm to the symphysis. 5 mm coronal and sagittal reformats were acquired. For radiation dose reduction, the following was used: automated exposure control, adjustment of mA and/or kV according to patient size. COMPARISON: [facility], CR, XR CHEST 1V, 03/03/2018, 22:21. FINDINGS: Image quality: Excellent. ABDOMEN: Lung bases: Lung bases are clear. Heart size is normal. Solid organs: Liver is normal in size and enhancement. Gallbladder demonstrates no significant abnormality. Biliary system is non dilated. Pancreas enhances normally. Spleen is normal in size and enhancement. No adrenal nodules. Kidneys demonstrate normal size and enhancement, without hydronephrosis. Peritoneum and bowel: Dilated fluid-filled loops are seen within the central abdomen inferiorly, which measure up to 3.7 cm. Proximal and distal to this, the small bowel loops demonstrate normal caliber. There is a potential swirl of mesenteric vessels seen adjacent to the prominent loops of bowel. No madeleine bowel wall thickening can be seen. No colonic abnormality is seen. No free air or significant free fluid can be seen. No loculated abscess is seen. Nodes and vessels: No retroperitoneal or mesenteric adenopathy by size criteria. Aorta and inferior vena cava are normal in size. The SMA is patent. Normal flow is seen within the portal vein. Miscellaneous: No ventral hernias. PELVIS: Genitourinary: Bladder wall thickness is normal. Miscellaneous: No inguinal hernias or adenopathy. Bones: No suspicious bony lesions. No vertebral body compression fractures. There is transitional lumbar anatomy, with L5 level that is highly sacralized on the left side. Mild levoconvex scoliotic curvature is noted. IMPRESSION: Prominent loops of fluid-filled small bowel can be seen within the central mid abdomen. Please consider internal hernia. 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 Dictated by: Natan Garcia M.D. on 02/27/2020 at 11:15 Approved by: Natan Garcia M.D. on 02/27/2020 at 11:27
[2020-02-27 11:58] LABS: Lactate (Lactic Acid) 2.7 mmol/L (0.7-2.1)
[2020-02-27] MEDS: HYDROMORPHONE 1 MG INJ IV (12:44)
[2020-02-27] MEDS: diphenhydrAMINE 50 MG/ML VIAL 25 MG IV (12:44)
[2020-02-27] MEDS: METOCLOPRAMIDE 10 MG/2 ML INJ IV (12:45)
--- NOTE | 2020-02-27 13:41 | P.HP_ITS ---
History of Present Illness History of Present Illness Date Patient Seen: 02/27/20 Time Patient Seen: 13:41 Chief complaint: vomiting/ stomach pain unable to keep down Narrative: This is a 39-year-old man who has had 3 days of intense abdominal pain, nausea, and vomiting. He came into the ER today and had a CT scan which is concerning for an internal hernia. His white count is 14, as I taped is 2.7. He is in severe pain at this time and could tolerate very little in terms of abdominal palpation. He has a history of hypothyroidism for which he takes Synthroid. He denies any surgical history. He denies any other medical problems. He denies any family medical history of gastrointestinal disorders, inflammatory bowel disease, or cancers. He smokes cigarettes about 1 pack per day for the past 9 years. He denies significant alcohol use. He smokes blanca sirisha approximately daily, but has not had any since last . He denies any known allergies. ROS: GENERAL: Denies chills, fatigue, malaise, fever, sweats. HEENT: Denies sinus pain, ear pain, sore throat, difficulty swallowing, dizziness. RESPIRATORY: Denies dyspnea, cough, wheezing, hemoptysis, sputum. CARDIOVASCULAR: Denies chest pain, palpitations, orthopnea, edema, GASTROINTESTINAL: See HPI : Denies dysuria, frequency, incontinence, hematuria, urinary retention. MUSCULOSKELETAL: denies weakness, joint pain, or bony pain SKIN: Denies rash, skin lesions, or other NEUROLOGIC: Denies weakness, headache, numbness, change in speech, confusion, seizures, incoordination. PSYCHIATRIC: No concerning psychosocial issues. PE GENERAL: Alert, in moderate distress due to abdominal pain, lying in position holding his abdomen. Appears stated age. Answers questions promptly and appropriately. Vital signs noted. HENT: Normocephalic, atraumatic. Hearing intact. EYES: Conjunctiva pink, sclera white, no periorbital swelling. CARDIOVASCULAR: Regular rate. No pedal edema. RESPIRATORY: Non-tachypneic, breathing comfortably on room air. GASTROINTESTINAL: Abdomen flat, markedly tender, with guarding in all quadrants, no obvious abdominal wall hernias, nondistended GENITALURINARY: No flank tenderness. MUSCULOSKELETAL: Equal tone and mass bilaterally. SKIN: Warm, dry, soft, appropriate color for ethnicity. No other lesions, rashes, or wounds. NEURO: Alert and Oriented X 3. No gross sensory deficits, or cognitive issues. PSYCH: Appropriate affect and mood. Patient History Medical History Hypothyroid (Acute) Family & Social History Safety & Behavioral: Feels Safe in Current Yes Environment Been Physically Hurt or No Threatened By a Person Tobacco & Substance use: Smoking Status Current every day smoker alcohol intake frequency 0-2 drinks per day Substance Use Type marijuana Meds Home Medications and Allergies Home Medications Medication Instructions Recorded Confirmed Type levothyroxine 100 mcg PO QAM 02/27/20 02/27/20 History Allergies Allergy/AdvReac Type Severity Reaction Status Date / Time No Known Drug Allergies Allergy Verified 02/27/20 11:39 Exam Vital Signs (past 8 hours): - 02/27/20 11:00 02/27/20 12:14 02/27/20 12:30 Temperature 98.4 F Pulse Rate 62 66 63 Respiratory Rate 16 12 16 Blood Pressure 148/85 H 109/56 L Pulse Oximetry 100 100 97 02/27/20 12:34 02/27/20 13:16 02/27/20 13:17 Temperature Pulse Rate 64 68 61 Respiratory Rate 20 12 Blood Pressure 122/67 131/76 Pulse Oximetry 100 100 Oxygen Delivery Method Room Air Objective Imaging CT scan - abdomen: Radiologist's impression: [place] [address] CT Scan Report Signed Patient: Devante iPna [facility]#: [id number] : 1980Acct:[id number] Age/Sex: 39 / MDate of Service: 02/27/20 Loc: ED Accession Number: [id number] Procedure: CT abdomen pelvis w con Ordering Provider: Breanne Fitzgerald- PROCEDURE: CT ABDOMEN PELVIS W CON INDICATIONS: abd pain, vomiting TECHNIQUE: After the administration of intravenous contrast, 5 mm thick sections acquired from the diaphragm to the symphysis. 5 mm coronal and sagittal reformats were acquired. For radiation dose reduction, the following was used: automated exposure control, adjustment of mA and/or kV according to patient size. COMPARISON: [facility], CR, XR CHEST 1V, 03/03/2018, 22:21. FINDINGS: Image quality: Excellent. ABDOMEN: Lung bases: Lung bases are clear. Heart size is normal. Solid organs: Liver is normal in size and enhancement. Gallbladder demonstrat es no significant abnormality. Biliary system is non dilated. Pancreas enhances normally. Spleen is normal in size and enhancement. No adrenal nodules. Kidneys demonstrate normal size and enhancement, without hydronephrosis. Peritoneum and bowel: Dilated fluid-filled loops are seen within the central abdomen inferiorly, which measure up to 3.7 cm. Proximal and distal to this, the small bowel loops demonstrate normal caliber. There is a potential swirl of mesenteric vessels seen adjacent to the prominent loops of bowel. No madeleine bowel wall thickening can be seen. No colonic abnormality is seen. No free air or significant free fluid can be seen. No loculated abscess is seen. Nodes and vessels: No retroperitoneal or mesenteric adenopathy by size criteria. Aorta and inferior vena cava are normal in size. The SMA is patent. Normal flow is seen within the portal vein. Miscellaneous: No ventral hernias. PELVIS: Genitourinary: Bladder wall thickness is normal. Miscellaneous: No inguinal hernias or adenopathy. Bones: No suspicious bony lesions. No vertebral body compression fractures. There is transitional lumbar anatomy, with L5 level that is highly sacralized on the left side. Mild levoconvex scoliotic curvature is noted. IMPRESSION: Prominent loops of fluid-filled small bowel can be seen within the central mid abdomen. Please consider internal hernia. 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 Dictated by: Natan Garcia M.D. on 02/27/2020 at 11:15 Approved by: Natan Garcia M.D. on 02/27/2020 at 11:27 Labs Result Diagrams: 02/27/20 11:32 02/27/20 11:32 Labs: Laboratory Results - last 24 hr 02/27/20 02/27/20 02/27/20 11:32 11:32 11:32 WBC 14.0 H RBC 5.21 Hgb 16.0 Hct 47.4 MCV 90.9 MCH 30.7 MCHC 33.7 RDW 12.5 Plt Count 313 Neut % (Auto) 84.2 H Lymph % (Auto) 8.3 L Ogle % (Auto) 7.2 Eos % (Auto) 0.0 L Baso % (Auto) 0.3 Neut # (Auto) 60463 H Lymph # (Auto) 1200 Ogle # (Auto) 1000 H Eos # (Auto) 0 Baso # (Auto) 0 Sodium 134 L Potassium 3.7 Chloride 90 L Carbon Dioxide 28 BUN 29 H Creatinine 0.82 Estimated GFR > 60.0 BUN/Creatinine Ratio 35.4 H Glucose 122 H Lactate 2.7 H Calcium 9.8 Total Bilirubin 0.9 AST 47 ALT 35 Alkaline Phosphatase 57 Total Protein 8.9 H Albumin 5.1 H Globulin 3.8 Albumin/Globulin Ratio 1.3 Amylase 118 H Lipase 209 Assessment & Plan Assessment and plan (1) Acute abdominal pain: Status: Acute (2) Elevated lactic acid level: Status: Acute (3) Abnormal CT scan, gastrointestinal tract: Status: Acute (4) Leukocytosis: Status: Acute Assessment & Plan narrative: This is a 39-year-old man with acute abdominal pain and a CT scan concerning for internal hernia. Risks and benefits of laparoscopic possible open reduction and repair of internal hernia, possible small bowel resection, possible ostomy were discussed with the patient. He desires to proceed with surgery. Plan: COVID-19 test, expedited NPO IV fluids IV Zosyn Proceed to OR as soon as possible COVID-19 COVID-19 status: Result pending Result date/Date tested (Pos, Neg/Pending): 02/27/20 Time Spent With Patient Time with patient: 25 - 35 minutes Quality VTE Deep Vein Thrombosis/Pulmonary Embolism Present on Admission: No
[2020-02-27] MEDS: PIPERACILLIN-TAZO 3.375 GM/50 ML FROZ.PIGGY IV (13:44)
[2020-02-27 13:45] LABS: Reflexed Lactate in 2 Hours Y
[2020-02-27 14:06] LABS: COVID19 -Nasal RAPID Negative (Negative)
[2020-02-27] MEDS: SODIUM CHLORIDE 0.9% 1,000 ML 84 ML IV (14:21)
[2020-02-27] MEDS: BUPIVACAINE 0.25% W/ EPI 30 ML VIAL INJ (14:55)
--- NOTE | 2020-02-27 16:04 | P.OP_ITS ---
Operative Date/Time/Diagnoses Date of procedure: 02/27/20 Time of procedure: 16:05 Pre-op diagnosis: Internal hernia, ischemic bowel Post-op diagnosis: same Procedure & Clinicians Procedure: Laparoscopic reduction and repair of internal hernia, repair of small-bowel serosal injury Same procedure as scheduled: Yes Indications: This is a 39-year-old man with 3 days of severe abdominal pain, nausea, vomiting and a CT scan in labs indicative of internal hernia and threatened bowel Surgeon: Hanane Gómez Click Yes if Unassisted: Yes Anesthesia Type: General Operative Notes Findings: Adhesion of mid jejunum down to terminal ileum, and adhesion of omentum down to terminal ileum. Thickened terminal ileum with possible diverticula Closure Type: primary Specimen(s): none sent Estimated Blood Loss (mL): 1 Procedure in detail: The patient was brought into the operating room and placed supine on the OR table. Sequential compression devices were placed on both legs and turned on. Appropriate perioperative antibiotics were given prior to the start of surgery. General anesthesia was induced the patient was intubated. Steven catheter was placed sterilely in the bladder. The abdomen was prepped and draped in sterile fashion with both arms tucked. Surgical time-out was con ducted. Local anesthetic was injected under the skin just superior to the umbilicus and a 5 mm vertical incision was made at this site. The umbilical stalk was grasped with a Margarito and elevated. A Veress needle was passed through the fascia into proper position. The position was tested with a saline drop test which was appropriate for intra-abdominal Veress needle placement. The abdomen was then insufflated in the usual fashion. Once insufflated to 15 mm Hg the Veress needle was removed and a 5 mm optical trocar was placed under direct vision using a 5 mm 30 degree scope. Once the camera was inside the abdomen I took a look around. There was no injury from port placement. Two additional ports were placed in a similar fashion in right upper and lower quadrants, and an additional suprapubic port was placed. All ports were 5 mm ports and were placed under direct vision after injection of local anesthetic. Upon examination the patient was found to have an adhesion of the mid jejunum down to the terminal ileum and adhesion of the omentum down to the terminal ileum. The adhesed bowel was wrapping around in strangulating the mesentery of the entire small bowel. The loop of mid jejunum that was adhesed down was ischemic appearing, and the entire small bowel mesentery was congested with venous engorgement. LigaSure was used to take down the adhesion of the jejunum, and the adhesed omentum from the terminal ileum. I then ran the entire small bowel, and all appeared viable. The ischemic loop of jejunum pinked up and appeared fairly normal after a few minutes. The area that was adhesed was rest up and had a serosal tear. I oversewed this with 3 0 silk. After running the entire small bowel and took a look at the area where the adhesions had been attached down near the terminal ileum. The ileal sail appeared inflamed and thickened. Just lateral to the ileocecal junction on the ileal side there was a raw place on the retroperitoneum to which the omentum was adherent. I looked at the terminal ileum, and it appeared thickened and dilated. This may be because it was partially obstructed and became dilated and thickened secondary to that. However it appeared that there may be some inflammatory bowel disease involvement or diverticula of the small bowel at this site. There were no tears in the bowel or obvious areas of active inflammation. There was no Meckel's diverticulum found. No evidence of other adhesions. At this point the decision was made to conclude the operation as we had freed the internal hernia, the bowel had return to a well perfused state, and the remaining question regarding the terminal ileum will be more appropriately addressed at a later time by colonoscopy. At this point the small bowel was returned to its normal position, insufflation was removed from the abdomen, and the port sites were closed with, 4 Monocryl in the skin. Each port site was sealed with Dermabond. Local anesthetic was given at each of the port sites and in the fascia. This concluded the procedure. At this point the needle sponge and instrument counts were correct. The Steven and NG tube were removed. The patient was awakened from anesthesia and extubated. The patient was transferred to the postanesthesia care unit in stable condition. Complications: none Post-operative Condition: stable Disposition: PACU
[2020-02-27] MEDS: SODIUM CHLORIDE 0.9% 1,000 ML 100 ML IV (17:08)
[2020-02-27 17:29] LABS: BUN Creatinine Ratio 31.1 (6-22); Blood Urea Nitrogen 23 mg/dL (9-20); Calcium 7.7 mg/dL (8.4-10.2); Carbon Dioxide 28 mmol/L (22-32); Chloride 98 mmol/L (98-107); Estimated Glomerular Filt Rate > 60.0 mL/min (>60); Glucose 120 mg/dL (70-100); HEMOLYSIS 16 (0-50); Magnesium 1.7 mg/dL (1.6-2.3); Phosphorous 4.5 mg/dL (2.5-4.5); Potassium 3.9 mmol/L (3.4-5.1); Sodium 133 mmol/L (137-145)
[2020-02-27] MEDS: HEPARIN 5,000 UNIT/ML VIAL 5000 UNIT SUBCUT (21:57)
[2020-02-28] VITALS (10 sets, daily range): BP systolic 103–138; BP diastolic 49–80; PULSE 56–77; RESP 15–18; TEMP 36.6–37.3; O2SAT 96–100
[2020-02-28] MEDS: KETOROLAC 15 MG/ML VIAL IV ×2 (02:19→18:05)
[2020-02-28] MEDS: SODIUM CHLORIDE 0.9% 1,000 ML 100 ML IV (02:20)
[2020-02-28] MEDS: LEVOTHYROXINE 100 MCG TABLET PO (05:37)
[2020-02-28 06:27] LABS: Add Manual Diff / Slide Review NO; Basophils Absolute Auto 0 /uL (0-100); Basophils Percent Auto 0.2 % (0-2); Eosinophils Absolute Auto 0 /uL (0-450); Eosinophils Percent Auto 0.1 % (2-4); Hemoglobin 13.1 g/dL (13.5-17.5); Lymphocytes Absolute Auto 1000 /uL (1100-4500); Lymphocytes Percent Auto 10.3 % (25-40); Mean Corpuscular HGB Conc 33.6 % (30-36); Mean Corpuscular Hemoglobin 30.9 PG (26-34); Mean Corpuscular Volume 92.1 fL (80-100); Monocytes Absolute Auto 1000 /uL (0-900); Monocytes Percent Auto 10.1 % (3-14); Neutrophils Absolute Auto 7600 /uL (1500-7000); Neutrophils Percent Auto 79.3 % (50-75); Platelet Count 212 X10^3/uL (150-400); Red Blood Cell Count 4.24 X10^6/uL (4.5-5.9); Red Cell Distribution Width 12.6 % (11.6-14.8); White Blood Cell Count 9.6 X10^3/uL (4.5-11.0)
[2020-02-28 06:38] LABS: BUN Creatinine Ratio 25.8 (6-22); Blood Urea Nitrogen 17 mg/dL (9-20); Calcium 7.6 mg/dL (8.4-10.2); Carbon Dioxide 32 mmol/L (22-32); Chloride 97 mmol/L (98-107); Estimated Glomerular Filt Rate > 60.0 mL/min (>60); Glucose 101 mg/dL (70-100); HEMOLYSIS < 15 (0-50); Magnesium 1.9 mg/dL (1.6-2.3); Potassium 3.9 mmol/L (3.4-5.1); Sodium 133 mmol/L (137-145)
[2020-02-28] MEDS: HEPARIN 5,000 UNIT/ML VIAL 5000 UNIT SUBCUT ×2 (08:11→20:51)
[2020-02-28] MEDS: DOCUSATE 100 MG CAPSULE PO ×2 (08:11→20:51)
--- NOTE | 2020-02-28 09:50 | PC.NURSE ---
Addendum entered by Kennedy Lloyd R.N. 02/28/20 10:46: Patient had a second stool this shift. small, soft very dark brown. not madeleine blood, not maroon. Did qauiac stool which was hem pos. Original Note: PATIENT REPORTS PAIN TOLERABLE AT 2/10. PREFERS TO STAND RATHER THAN SIT OR LAY DOWN. HAS AMBULATED EXTENSIVELY IN HALLS. DENIES NAUSEA. TOOK IN APPROX 50% OF FULL LIQUID DIET. BOWEL TONES HYPOACTIVE. PATIENT REPORTS BLACK TARRY FOUL SMELLING BOWEL MVMT OF MED. SIZE. DENIES MADELEINE BLOOD.
--- NOTE | 2020-02-28 11:32 | PM.PNPO.1 ---
Subjective Subjective Date Patient Seen: 02/28/20 Time Patient Seen: 11:32 Interval history: No major overnight events. Pain is well controlled. He is ambulatory. He has been tolerating liquids mild nausea he is burping frequently, had a small-bowel movement Exam Vital Signs (past 8 hours): - 02/28/20 05:00 02/28/20 07:55 02/28/20 08:00 Temperature 98.2 F 98.3 F Pulse Rate 63 58 L Respiratory Rate 16 16 Blood Pressure 109/51 L 122/66 Pulse Oximetry 98 100 96 02/28/20 08:57 02/28/20 09:21 Temperature Pulse Rate 77 77 Respiratory Rate 18 18 Blood Pressure Pulse Oximetry 96 Oxygen Delivery Method Room Air Oxygen Flow Rate 0 Narrative Exam Narrative: General adult male alert oriented no acute distress Abdomen minimally distended incisions clean dry intact appropriately tender to palpation Objective Labs Result Diagrams: 02/28/20 05:35 02/28/20 05:35 Labs: Laboratory Results - last 24 hr 02/27/20 02/27/20 02/27/20 11:32 11:32 11:32 WBC 14.0 H RBC 5.21 Hgb 16.0 Hct 47.4 MCV 90.9 MCH 30.7 MCHC 33.7 RDW 12.5 Plt Count 313 Neut % (Auto) 84.2 H Lymph % (Auto) 8.3 L [place] % (Auto) 7.2 Eos % (Auto) 0.0 L Baso % (Auto) 0.3 Neut # (Auto) 82954 H Lymph # (Auto) 1200 [place] # (Auto) 1000 H Eos # (Auto) 0 Baso # (Auto) 0 Sodium 134 L Potassium 3.7 Chloride 90 L Carbon Dioxide 28 BUN 29 H Creatinine 0.82 Estimated GFR > 60.0 BUN/Creatinine Ratio 35.4 H Glucose 122 H Lactate 2.7 H Calcium 9.8 Phosphorus Magnesium Total Bilirubin 0.9 AST 47 ALT 35 Alkaline Phosphatase 57 Total Protein 8.9 H Albumin 5.1 H Globulin 3.8 Albumin/Globulin Ratio 1.3 Amylase 118 H Lipase 209 COVID-19 PCR 02/27/20 02/27/20 02/27/20 13:25 16:28 16:28 WBC RBC Hgb Hct MCV MCH MCHC RDW Plt Count Neut % (Auto) Lymph % (Auto) [place] % (Auto) Eos % (Auto) Baso % (Auto) Neut # (Auto) Lymph # (Auto) [place] # (Auto) Eos # (Auto) Baso # (Auto) Sodium 133 L Potassium 3.9 Chloride 98 Carbon Dioxide 28 BUN 23 H Creatinine 0.74 Estimated GFR > 60.0 BUN/Creatinine Ratio 31.1 H Glucose 120 H Lactate Calcium 7.7 L Phosphorus Magnesium 1.7 Total Bilirubin AST ALT Alkaline Phosphatase Total Protein Albumin Globulin Albumin/Globulin Ratio Amylase Lipase COVID-19 PCR Negative 02/27/20 02/28/20 02/28/20 16:28 05:35 05:35 WBC 9.6 RBC 4.24 L Hgb 13.1 L Hct 39.0 L MCV 92.1 MCH 30.9 MCHC 33.6 RDW 12.6 Plt Count 212 Neut % (Auto) 79.3 H Lymph % (Auto) 10.3 L [place] % (Auto) 10.1 Eos % (Auto) 0.1 L Baso % (Auto) 0.2 Neut # (Auto) 7600 H Lymph # (Auto) 1000 L [place] # (Auto) 1000 H Eos # (Auto) 0 Baso # (Auto) 0 Sodium 133 L Potassium 3.9 Chloride 97 L Carbon Dioxide 32 BUN 17 Creatinine 0.66 Estimated GFR > 60.0 BUN/Creatinine Ratio 25.8 H Glucose 101 H Lactate Calcium 7.6 L Phosphorus 4.5 3.0 D Magnesium 1.9 Total Bilirubin AST ALT Alkaline Phosphatase Total Protein Albumin Globulin Albumin/Globulin Ratio Amylase Lipase COVID-19 PCR Assessment & Plan Post-op Postoperative Procedures: Procedures Operation Date: 02/27/20 14:30 Actual Procedures Side Surgeon p Laparoscopy, reduction and repair of internal hernia. Repair of serosa Hanane Gómez MD Postoperative plan narrative: 39-year-old male postoperative day 1 after a laparoscopic lysis of adhesions doing well. He is burping a moderate amount this morning, I am concerned he may develop a postoperative ileus. Continue observation for today. Will likely discharge home tomorrow. -diet as tolerated -DC IV fluid -out of bed ambulate -SCDs and Heparin Time Spent With Patient Time with patient: 25 - 35 minutes Quality VTE Deep Vein Thrombosis/Pulmonary Embolism Present on Admission: No
--- NOTE | 2020-02-28 14:57 | CM.DPC ---
DCP continued: Patient is a 39 yr old male who was admitted for acute abdominal pain and Hernia- patient had surgery to repair hernia and bowel. patient currently lives with his Tami. Patient is completely independent at baseline and drives. No DME at home and has been ambulating independently. Cm/Rn met with patient at the bedside and explained role. patient was alert and oriented at time of visit. I: Reg[place] and lif[employer] Plan: D/C charge home with family when medically stable. No identified D/C planning needs noted at this time. Cm department will follow patient and be available to assist with any new D/C planning needs that may arise. Carlota Salvador RN Discharge Planning/Care Management CM Discharge Assessment Start: 02/28/20 14:56 Freq: Status: Active Protocol: Document 02/28/20 14:56 HS (Rec: 02/28/20 14:57 HS [id number]) Discharge Planning Assessment Assigned Grain Weigher Carlota Salvador DPOA/Assigned Designee Name tami Robles () Contact Information [phone] Advance Directives? No History Provided By Patient Has Patient been admitted in last 30 No days? Prior Living Arrangements House Household Members spouse Type of transporation used prior to Drives own vehicle admit Independent with ADL's Yes Is patient alert and oriented? Yes Caregiver for Another Yes Barriers to Discharge No Discharge Plan Home Referrals Initiated None needed Whiteboard Updated in Patient Room with Yes name and ext. # of Grain Weigher Review Status In Process Next Review Type Continued Stay Review
--- NOTE | 2020-02-28 22:20 | PC.NURSE ---
Evening Shift Report received, care assumed 1530. Pt walking in hallways upon initial contact. VSS. Reports pain is controlled. Tolerating full liquid diet. Positive bowel tones, bowel movements today. Lap sites glued x4, CDI. n
[2020-02-29 00:32] VITALS: BP 113/42; PULSE 60; RESP 16; TEMP 36.9; O2SAT 97
--- NOTE | 2020-02-29 02:08 | PC.NURSE ---
Seen and assessed at 0036. Is alert and oriented. Breath sounds CTA with RA sat of 97%. HRR. Denies nausea. BT present and states he is passing flatus and reports he has had several small soft-watery stools. Is voiding without dysuria, frequency or urgency. Independent with mobility. Lap sites to abdomen x4 are all dermabonded and without redness/drainage. Denies pain. Wearing bilateral calf SCD's. Fall risk score is low.
[2020-02-29] MEDS: LEVOTHYROXINE 100 MCG TABLET PO (06:11)
[2020-02-29 06:21] VITALS: BP 125/89; PULSE 58; RESP 16; TEMP 36.2; O2SAT 100
[2020-02-29 06:51] LABS: Add Manual Diff / Slide Review NO; Basophils Absolute Auto 0 /uL (0-100); Basophils Percent Auto 0.6 % (0-2); Eosinophils Absolute Auto 0 /uL (0-450); Eosinophils Percent Auto 0.6 % (2-4); Hematocrit 42.9 % (41-53); Hemoglobin 14.3 g/dL (13.5-17.5); Lymphocytes Absolute Auto 2000 /uL (1100-4500); Lymphocytes Percent Auto 37.2 % (25-40); Mean Corpuscular HGB Conc 33.2 % (30-36); Mean Corpuscular Hemoglobin 31.1 PG (26-34); Mean Corpuscular Volume 93.6 fL (80-100); Monocytes Absolute Auto 600 /uL (0-900); Monocytes Percent Auto 10.7 % (3-14); Neutrophils Absolute Auto 2700 /uL (1500-7000); Neutrophils Percent Auto 50.9 % (50-75); Platelet Count 223 X10^3/uL (150-400); Red Blood Cell Count 4.59 X10^6/uL (4.5-5.9); Red Cell Distribution Width 12.9 % (11.6-14.8); White Blood Cell Count 5.2 X10^3/uL (4.5-11.0)
[2020-02-29 07:02] LABS: BUN Creatinine Ratio 17.7 (6-22); Blood Urea Nitrogen 14 mg/dL (9-20); Calcium 8.5 mg/dL (8.4-10.2); Carbon Dioxide 32 mmol/L (22-32); Chloride 99 mmol/L (98-107); Estimated Glomerular Filt Rate > 60.0 mL/min (>60); Glucose 95 mg/dL (70-100); HEMOLYSIS < 15 (0-50); Magnesium 2.2 mg/dL (1.6-2.3); Phosphorous 2.5 mg/dL (2.5-4.5); Sodium 138 mmol/L (137-145)
[2020-02-29 08:12] VITALS: BP 132/68; PULSE 55; RESP 14; TEMP 37.2; O2SAT 100
--- NOTE | 2020-02-29 09:09 | P.DS_ITS ---
History of Present Illness History of Present Illness Chief complaint: vomiting/ stomach pain unable to keep down Narrative: This is a 39-year-old man who has had 3 days of intense abdominal pain, nausea, and vomiting. He came into the ER today and had a CT scan which is concerning for an internal hernia. His white count is 14, as I taped is 2.7. He is in severe pain at this time and could tolerate very little in terms of abdominal palpation. He has a history of hypothyroidism for which he takes Synthroid. He denies any surgical history. He denies any other medical problems. He denies any family medical history of gastrointestinal disorders, inflammatory bowel disease, or cancers. He smokes cigarettes about 1 pack per day for the past 9 years. He denies significant alcohol use. He smokes marij uana approximately daily, but has not had any since last . He denies any known allergies. ROS: GENERAL: Denies chills, fatigue, malaise, fever, sweats. HEENT: Denies sinus pain, ear pain, sore throat, difficulty swallowing, dizziness. RESPIRATORY: Denies dyspnea, cough, wheezing, hemoptysis, sputum. CARDIOVASCULAR: Denies chest pain, palpitations, orthopnea, edema, GASTROINTESTINAL: See HPI : Denies dysuria, frequency, incontinence, hematuria, urinary retention. MUSCULOSKELETAL: denies weakness, joint pain, or bony pain SKIN: Denies rash, skin lesions, or other NEUROLOGIC: Denies weakness, headache, numbness, change in speech, confusion, seizures, incoordination. PSYCHIATRIC: No concerning psychosocial issues. PE GENERAL: Alert, in moderate distress due to abdominal pain, lying in position holding his abdomen. Appears stated age. Answers questions promptly and appropriately. Vital signs noted. HENT: Normocephalic, atraumatic. Hearing intact. EYES: Conjunctiva pink, sclera white, no periorbital swelling. CARDIOVASCULAR: Regular rate. No pedal edema. RESPIRATORY: Non-tachypneic, breathing comfortably on room air. GASTROINTESTINAL: Abdomen flat, markedly tender, with guarding in all quadrants, no obvious abdominal wall hernias, nondistended GENITALURINARY: No flank tenderness. MUSCULOSKELETAL: Equal tone and mass bilaterally. SKIN: Warm, dry, soft, appropriate color for ethnicity. No other lesions, rashes, or wounds. NEURO: Alert and Oriented X 3. No gross sensory deficits, or cognitive issues. PSYCH: Appropriate affect and mood. Discharge Providers Provider Date of admission: 02/27/20 14:21 Discharge Date: 02/29/20 Primary care physician: Jamar Cuellar MD Consults: 02/27/20 14:27 Consult to Respiratory Therapy Evaluate & Treat Comment: Physician Instructions: Evaluate and treat 02/27/20 15:56 Consult to Discharge Planning Routine Comment: Discharge provider: Hanane Gómez MD Summary Hospital Course Discharge Diagnosis: small bowel obstruction, ischemic bowel Hospital Course: The patient was taken directly to the ER from the OR for emergency surgery for SBO with ischemic bowel. His pain and lab abnormalities resolved after surgery. He tolerated PO and was passing gas and stool by POD#2. Pain was well controlled without narcotic pain medication. Status at Discharge Cognitive/behavioral status at discharge: oriented Functional status at discharge: independent ambulation Overall status at discharge: patient is progressing back to baseline Time Spent with Patient Time spent: Greater than 30 minutes Exam Vital Signs (past 8 hours): - 02/29/20 06:21 02/29/20 08:12 Temperature 97.2 F L 98.9 F Pulse Rate 58 L 55 L Respiratory Rate 16 14 Blood Pressure 125/89 132/68 Pulse Oximetry 100 100 Oxygen Delivery Method Room Air Oxygen Flow Rate 0 Narrative Exam Narrative: GENERAL: Well groomed and cooperative. Appears stated age. Answers questions promptly and appropriately. Vital signs noted. HENT: Normocephalic, atraumatic. Hearing intact. EYES: Conjunctiva pink, sclera white, no periorbital swelling. CARDIOVASCULAR: Regular rate. No pedal edema. RESPIRATORY: Non-tachypneic, breathing comfortably on room air. GASTROINTESTINAL: Abdomen soft and non-distended; incisions c/d/i with skin glue in place GENITALURINARY: No flank tenderness. MUSCULOSKELETAL: Equal tone and mass bilaterally. SKIN: Warm, dry, soft, appropriate color for ethnicity. No other lesions, rashes, or wounds. NEURO: Alert and Oriented X 3. No gross sensory deficits, or cognitive issues. PSYCH: Appropriate affect and mood. Objective Imaging CT scan - abdomen: Radiologist's impression: Imaging CT scan - abdomen: Radiologist's impression: [address] [address] [address] Scan Report Signed Patient: Devante Pina [facility]#: [id number] : 1980Acct:[id number] Age/Sex: 39 / MDate of Service: 02/27/20 Loc: ED Accession Number: [id number] Procedure: CT abdomen pelvis w con Ordering Provider: Breanne Fitzgerald-BC PROCEDURE: CT ABDOMEN PELVIS W CON INDICATIONS: abd pain, vomiting TECHNIQUE: After the administration of intravenous contrast, 5 mm thick sections acquired f rom the diaphragm to the symphysis. 5 mm coronal and sagittal reformats were acquired. For radiation dose reduction, the following was used: automated exposure control, adjustment of mA and/or kV according to patient size. COMPARISON: [facility], CR, XR CHEST 1V, 03/03/2018, 22:21. FINDINGS: Image quality: Excellent. ABDOMEN: Lung bases: Lung bases are clear. Heart size is normal. Solid organs: Liver is normal in size and enhancement. Gallbladder demonstrates no significant abnormality. Biliary system is non dilated. Pancreas enhances normally. Spleen is normal in size and enhancement. No adrenal nodules. Kidneys demonstrate normal size and enhancement, without hydronephrosis. Peritoneum and bowel: Dilated fluid-filled loops are seen within the central abdomen inferiorly, which measure up to 3.7 cm. Proximal and distal to this, the small bowel loops demonstrate normal caliber. There is a potential swirl of mesenteric vessels seen adjacent to the prominent loops of bowel. No madeleine bowel wall thickening can be seen. No colonic abnormality is seen. No free air or significant free fluid can be seen. No loculated abscess is seen. Nodes and vessels: No retroperitoneal or mesenteric adenopathy by size criteria. Aorta and inferior vena cava are normal in size. The SMA is patent. Normal flow is seen within the portal vein. Miscellaneous: No ventral hernias. PELVIS: Genitourinary: Bladder wall thickness is normal. Miscellaneous: No inguinal hernias or adenopathy. Bones: No suspicious bony lesions. No vertebral body compression fractures. There is transitional lumbar anatomy, with L5 level that is highly sacralized on the left side. Mild levoconvex scoliotic curvature is noted. IMPRESSION: Prominent loops of fluid-filled small bowel can be seen within the central mid abdomen. Please consider internal hernia. Labs Result Diagrams: 02/29/20 06:28 02/29/20 06:28 Labs: Laboratory Results - last 24 hr 02/29/20 02/29/20 06:28 06:28 WBC 5.2 RBC 4.59 Hgb 14.3 Hct 42.9 MCV 93.6 MCH 31.1 MCHC 33.2 RDW 12.9 Plt Count 223 Neut % (Auto) 50.9 D Lymph % (Auto) 37.2 D Crane % (Auto) 10.7 Eos % (Auto) 0.6 L Baso % (Auto) 0.6 Neut # (Auto) 2700 Lymph # (Auto) 2000 Crane # (Auto) 600 Eos # (Auto) 0 Baso # (Auto) 0 Sodium 138 Potassium 4.0 Chloride 99 Carbon Dioxide 32 BUN 14 Creatinine 0.79 Estimated GFR > 60.0 BUN/Creatinine Ratio 17.7 Glucose 95 Calcium 8.5 Phosphorus 2.5 Magnesium 2.2 Discharge Assessment & Plan Assessment and Plan Assessment: SBO, resolved with lysis of adhesions; ischemic bowel pinked up and resolved after takedown of adhesions Plan of Treatment: Advance diet as tolerated, avoid heavy lifting/straining until follow up visit Discharge Plan Discharge Plan Patient Disposition: Home Discharge comment: You had adhesions of your small intestine which caused an obstruction. It is not clear the cause of these adhesions, but you will likely need a colonoscopy once you have recovered from surgery to help determine the cause of your adhesions and to determine if anything further should be done. Avoid straining your abdominal wall, lifting/pushing/pulling more than 10 lb, constipation, straining. Call Dr. Gómez's office at [facility] [place] if you need a note for work before you come back in for your follow-up appointment next week. Is important to prevent constipation rather than wait until you get constipated to treat it. You may use [id number] stool softeners or laxatives such as Docusate 100 mg twice daily or MiraLax 1-3 doses per day to help prevent constipation. It is better to take something ahead of time rather than wait until you are straining. Then if you have loose stool you can slow down on the stool softener. You may take ibuprofen or Tylenol as needed for pain. Take no more than 3000 mg of Tylenol from all sources in 24 hours. There may be Tylenol and other medications such as cold medicine her headache remedies. Make sure you do not take more than this recommended amount. Take no more than 2400 mg of ibuprofen in 24 hours. You may take both of these medications at their full doses as they have different modes of function. Discharge orders & Medications Prescriptions: Continued levothyroxine 100 mcg tablet 100 mcg PO QAM RF: 0 Follow up/Referrals: Jamar Cuellar MD [Primary Care Provider] - Hanane Gómez MD [Physician] - (Please make a follow up appointment to see Dr. Gómez in the office at [facility] [place] next week. ) Diet/Activity/Treatments Diet: Diet as Tolerated Diet comment: You may advance your diet gradually. Avoid difficult to digest foods. Activity: Avoid heavy lifting, strenuous exercise until your follow up appointment. Otherwise you may do activity as tolerated. Skin/Wound/Dressing Care Report to your healthcare provider any signs of infection, such as:: chills, fever, night sweats, increased pain, unusual drainage and unusual redness Visit Report/Discharge Packet Instructions: Low-Fiber/Low-Residue Diet, DI for Small Bowel Obstruction, DI for Laparoscopy, Stool Softeners, [facility]: Wound Care Stand Alone Forms: Surgery Discharge Visit Report Forms: Patient Portal/API, Stroke Signs & Symptoms Discharge Data Primary Care Provider: Jamar Cuellar Attending Provider: Hanane Gómez Admit Date/Time: 02/27/20 14:21 Discharges patient from system. Discharge Date/Time: 02/29/20 15:11 Quality VTE Deep Vein Thrombosis/Pulmonary Embolism Present on Admission: No
[2020-02-29] MEDS: HEPARIN 5,000 UNIT/ML VIAL 5000 UNIT SUBCUT (09:47)
[2020-02-29] MEDS: DOCUSATE 100 MG CAPSULE PO (09:47)
[2020-02-29] MEDS: MAGNESIUM HYDROXIDE 30 ML UDC PO (09:47)
[2020-02-29] MEDS: SODIUM CHLORIDE 0.9% FLUSH 10 ML IV (09:48)
[2020-02-29 11:44] VITALS: BP 132/84; PULSE 57; RESP 15; TEMP 36.5; O2SAT 100
--- NOTE | 2020-02-29 15:12 | PC.NURSE ---
Evening Shift Assessment- Patient left via wheelchair with all personal belongings to private car at 1510.
== END 2020-02-29 15:11 | disposition home or self-care (01) ==
LOC: ED 14:17 → AC 14:22
PROVIDERS: Admitting Provider Surgery; Emergency Provider Nurse Practitioner Family; Family Provider Family Medicine; PCP Family Medicine; Referring Provider Nurse Practitioner Family; Visit Provider Surgery
PROC: (CPT 49320; principal; 2020-02-27 14:30)
DX: K46.0 Unspecified abdominal hernia with obstruction, without gangrene (principal); F17.210 Nicotine dependence, cigarettes, uncomplicated; E03.9 Hypothyroidism, unspecified; Z11.59 Encounter for screening for other viral diseases; K56.51 Intestinal adhesions [bands], with partial obstruction
CPT/HCPCS: 49653; 36415; 36592; 74177; 80048; 80053; 81003; 82150; 83605; 83690; 83735; 84100; 85025; 87635; 93005; 93010; 94760; 96361; 96365; 96372; 96375; 96376; 99284; G0378; C9113; J0330; J1100; J1170; J1200; J1644; J1885; J2250; J2270; J2405; J2543; J2704; J2765; J3010; Q9967

== ENCOUNTER → 2020-06-05 10:31 | Outpatient (CLI) | payer OTHER, SELFPAY ==
[2020-02-27 16:55] VITALS: BMI 25.0
--- NOTE | 2020-06-05 11:29 | DI.CT.S_ITS ---
PROCEDURE: CT ABDOMEN PELVIS W CON INDICATIONS: intermittent obstructive symptoms TECHNIQUE: After the administration of oral and intravenous contrast, 5 mm thick sections acquired from the diaphragms to the symphysis. 5 mm thick coronal and sagittal reformats were performed. For radiation dose reduction, the following was used: automated exposure control, adjustment of mA and/or kV according to patient size. COMPARISON: [facility], CT, CT ABDOMEN PELVIS W CON, 02/27/2020, 11:53. FINDINGS: Image quality: Excellent. ABDOMEN: Lung bases: Lung bases are clear. Heart size is normal. Solid organs: Liver is normal in size and enhancement. Gallbladder is normal . Biliary system is non-dilated. Pancreas enhances normally. Spleen is normal in size and enhancement. No adrenal nodules. Kidneys are normal in size and enhancement, without hydronephrosis. Peritoneum and bowel: Stomach is mildly distended. Proximal small bowel loops are prominent measuring up to 3.2 cm in diameter. There is no transitional point. The colon loops are normal in caliber and wall thickness with colonic gas throughout the colon. No free fluid or air. Nodes and vessels: No retroperitoneal or mesenteric adenopathy. Aorta and inferior vena cava are normal in caliber. Miscellaneous: No ventral hernias. PELVIS: Genitourinary: Bladder wall thickness is normal. Miscellaneous: No inguinal hernias or adenopathy. Bones: No suspicious bony lesions. No vertebral body compression fractures. Mild levoscoliosis and degenerative changes in the lower lumbar spine. Transitional anatomy of L5 with partial sacralization of L5. IMPRESSION: 1. The bowel gas pattern suggests mild ileus. No high-grade obstruction. Partial or intermittent obstruction cannot be excluded. Dictated by: Kat Valdes M.D. on 06/05/2020 at 13:19 Approved by: Kat Valdes M.D. on 06/05/2020 at 13:34
== END ==
PROVIDERS: Family Provider Family Medicine; PCP Family Medicine; Referring Provider Surgery; Visit Provider Surgery
DX: K31.89 Other diseases of stomach and duodenum (principal); M47.816 Spondylosis without myelopathy or radiculopathy, lumbar region; M41.86 Other forms of scoliosis, lumbar region; M43.27 Fusion of spine, lumbosacral region; Z87.19 Personal history of other diseases of the digestive system
CPT/HCPCS: 74177; Q9967

== ENCOUNTER 2020-06-27 10:37 | Day surgery (SDC) | payer OTHER, SELFPAY ==
[2020-02-27 16:55] VITALS: BMI 25.0
--- NOTE | 2020-06-27 | PATH_ITS ---
[facility] Accession Number: [id number] . 01 Material submitted: . PART A: duodenum - DUODENUM BIOPSY PART B: gastrointestinal site - STOMACH BIOPSY PART C: esophagus - ESOPHAGUS BIOPSY . 01 Clinical history: . DX EGD/COLONOSCOPY . 02 Diagnosis: A. Duodenum, Biopsy: Duodenal mucosa with no diagnostic abnormality. Negative for active inflammation, features of sprue, dysplasia, or malignancy. . B. Stomacha, Biopsy: Helicobacter pyloric gastritis. Negative for intestinal metaplasia. Negative for dysplasia and malignancy. . C. Esophagus, Biopsy: Squamous mucosa with no diagnostic abnormality. Intraepithelial eosinophils are not increased. Negative for dysplasia and malignancy. [facility] 06/29/2020 1535 Local . 02 Electronically signed: . Diana Christopher MD, Pathologist NPI- [id number] . 01 Gross description: . Part A: DUODENUM BIOPSY: Received in formalin are 2 fragment(s) of sanchez, soft tissue measuring 0.1 x 0.1 x 0.1 cm to 0.2 x 0.2 x 0.2 cm submitted entirely in 1 cassette(s) Part B: STOMACH BIOPSY: Received in formalin are 4 fragment(s) of sanchez, soft tissue measuring 0.1 x 0.1 x 0.1 cm to 0.3 x 0.2 x 0.2 cm submitted entirely in 1 cassette(s) Part C: ESOPHAGUS BIOPSY: Received in formalin is 1 fragment(s) of sanchez, soft tissue measuring 0.2 x 0.2 x 0.2 cm submitted entirely in 1 cassette(s) /[facility] 06/28/2020 2016 Local . 02 Pathologist provided ICD-10: R10.13, B96.81 . 02 CPT . 525613, 337514, 651799 Performed at: 01 [facility] [address] [place] [address], [place], [place] [id number] MD Joseph Kerns MD Phone: [phone] Performed at: 02 [facility] [address] [place], [place] [id number] MD Diana Christopher MD Phone: [phone]
[2020-06-27 11:26] LABS: COVID19 -Nasal RAPID Negative (Negative)
[2020-06-27 12:25] VITALS: BP 117/79; PULSE 74; RESP 16; TEMP 36.3; O2SAT 100; BMI 25.0
[2020-06-27] MEDS: SODIUM CHLORIDE 0.9% 1,000 ML 200 ML IV (12:25)
--- NOTE | 2020-06-27 12:59 | P.HP_ITS ---
History of Present Illness History of Present Illness Date Patient Seen: 06/27/20 Time Patient Seen: 12:59 Chief complaint: DX EGD/COLONOSCOPY Narrative: This is a 39-year-old man who I operated on in February. He was seen in the ER and taken emergently to the operating room for internal hernia and ischemic bowel. He had laparoscopic lysis of adhesions and serosal repair. We were able to save his ischemic intestine, and he had return of bowel function within a couple of days. He was discharged 2 days later, and was sent home on a low residual diet and ibuprofen/Tylenol for pain (refused narcotics). After surgery he was more constipated and this taking Miralax and dulcolax daily. Prior to surgery he routinely had copious diarrhea every day prior for many years, so the constipation is quite a change for him. After surgery he was not having much of an appetite as he once did, and reported that he had been eating less than usual. He also reported epigastric post prandial pain, not on a PPI or H2 kailey. At that time we started him on Metamucil, and since then his bowel movements have improved so that he is having soft formed bowel movements without straining. He was started on famotidine, and has noticed some improvement in his nausea and epigastric discomfort. Although he is still having some epigastric discomfort. He is here today for upper endoscopy and colonoscopy to evaluate for his prior bowel obstruction, and his persistent n ausea and epigastric pain. ROS: Thirteen system review is otherwise negative other than as mentioned below and in HPI. PE: GENERAL: Well groomed and cooperative. Appears stated age. Answers questions promptly and appropriately. Vital signs noted. HENT: Normocephalic, atraumatic. Hearing intact. EYES: Conjunctiva pink, sclera white, no periorbital swelling. CARDIOVASCULAR: Regular rate. No pedal edema. RESPIRATORY: Non-tachypneic, breathing comfortably on room air. GASTROINTESTINAL: Abdomen soft and non-distended; incisions well healed; abdomen nontender; striae from his childhood obesity are visible GENITALURINARY: No flank tenderness. MUSCULOSKELETAL: Equal tone and mass bilaterally. SKIN: Warm, dry, soft, appropriate color for ethnicity. No other lesions, rashes, or wounds. NEURO: Alert and Oriented X 3. No gross sensory deficits, or cognitive issues. PSYCH: Appropriate affect and mood. Patient History Medical History Hypothyroid Family & Social History Social History: household members spouse Tobacco & Substance use: Tobacco type cigarettes,cannabis/marijuana Smoking Status Current every day smoker Smoking packs per day 0.2 alcohol intake current alcohol intake frequency 0-2 drinks per day Substance Use Type marijuana Meds Home Medications and Allergies Home Medications Medication Instructions Recorded Confirmed Type levothyroxine 100 mcg PO QAM 02/27/20 06/27/20 History famotidine 20 mg tablet 20 mg PO BID #60 tab 05/25/20 06/27/20 Rx Allergies Allergy/AdvReac Type Severity Reaction Status Date / Time kelsy Allergy Severe Anaphylaxis Verified 06/27/20 12:00 Exam Vital Signs (past 8 hours): - 06/27/20 12:25 Temperature 97.3 F L Pulse Rate 74 Respiratory Rate 16 Blood Pressure 117/79 Pulse Oximetry 100 Oxygen Delivery Method Room Air Objective Imaging CT scan - abdomen: My impression: Slightly dilated loops of bowel, possible partial obstruction or possible low-grade ileus Radiologist's impression: [address] [id number] Scan ReportSigned Patient: Devante Pina MMR#: [id number]: 1980Acct:[id number]/Sex: 39 / MDate of Service: 06/05/20Loc: CTAccession Number: [id number] Procedure: CT abdomen pelvis w con Ordering Provider: Hanane Gómez MD PROCEDURE: CT ABDOMEN PELVIS W CON INDICATIONS: intermittent obstructive symptoms TECHNIQUE: After the administration of oral and intravenous contrast, 5 mm thick sections acquired from the diaphragms to the symphysis. 5 mm thick coronal and sagittal reformats were performed. For radiation dose reduction, the following was used: automated exposure control, adjustment of mA and/or kV according to patient size. COMPARISON: [facility], CT, CT ABDOMEN PELVIS W CON, 02/27/2020, 11:53. FINDINGS: Image quality: Excellent. ABDOMEN: Lung bases: Lung bases are clear. Heart size is normal. Solid organs: Liver is normal in size and enhancement. Gallbladder is normal . Biliary system is non-dilated. Pancreas enhances normally. Spleen is normal in size and enhancement. No adrenal nodules. Kidneys are normal in size and enhancement, without hydronephrosis. Peritoneum and bowel: Stomach is mildly distended. Proximal small bowel loops are prominent measuring up to 3.2 cm in diameter. There is no transitional point. The colon loops are normal in caliber and wall thickness with colonic gas throughout the colon. No free fluid or air. Nodes and vessels: No retroperitoneal or mesenteric adenopathy. Aorta and inferior vena cava are normal in caliber. Miscellaneous: No ventral hernias. PELVIS: Genitourinary: Bladder wall thickness is normal. Miscellaneous: No inguinal hernias or adenopathy. Bones: No suspicious bony lesions. No vertebral body compression fractures. Mild levoscoliosis and degenerative changes in the lower lumbar spine. Transitional anatomy of L5 with partial sacralization of L5. IMPRESSION: 1. The bowel gas pattern suggests mild ileus. No high-grade obstruction. Partial or intermittent obstruction cannot be excluded. Dictated by: Kat Valdes M.D. on 06/05/2020 at 13:19 Approved by: Kat Valdes M.D. on 06/05/2020 at 13:34 Labs Labs: Laboratory Results - last 24 hr 06/27/20 10:52 SARS-CoV-2 (PCR) Negative Assessment & Plan Assessment & Plan narrative: Risks and benefits of screening EGD, biopsies, screening colonoscopy and possible polypectomy were discussed with the patient including risk of bleeding, perforation, need for additional procedures, risks of anesthesia. The patient desires to proceed with the EGD and colonoscopy procedure. COVID-19 COVID-19 status: Negative Result date/Date tested (Pos, Neg/Pending): 06/27/20 Time Spent With Patient Time with patient: 15-24 minutes Quality VTE Deep Vein Thrombosis/Pulmonary Embolism Present on Admission: No
--- NOTE | 2020-06-27 13:06 | P.OP.ENDO_ITS ---
Operative Date/Time/Diagnoses Date of procedure: 06/27/20 Time of procedure: 13:06 Pre-op diagnosis: Epigastric pain, chronic nausea, change in bowel habit Post-op diagnosis: same (Inflamed duodenal mucosa, mild gastritis, no hiatal hernia, no visible ulcers, no visible evidence of esophagitis or Evangelista's esophagus) Procedure & Clinicians Study performed: Esophagogastroduodenoscopy Procedural sedation performed by the endoscopist Biopsy of duodenum, stomach, distal esophagus Colonoscopy Procedural sedation performed by the endoscopist Same procedure as scheduled: Yes Indications: Epigastric pain, nausea, change in bowel habits Surgeon: Hanane Gómez Procedure Notes SCOAP/Timeout: Performed Procedure in detail: The patient was brought to the room and placed in left lateral decubitus position with all bony prominences padded. A bite block was positioned in the patient's mouth to protect the lips, teeth, and tongue for the procedure. A time-out was performed and then the patient was given procedural sedation starting with 4 mg of Versed and 10 mcg of fentanyl. Vitals were monitored throughout the procedure and remained stable. Once adequately sedated, the procedure was begun. The lubricated gastroscope was passed through the bite block and across the tongue and into the esophagus without incident. A tubular view of the esophagus was maintained as the scope was advanced through the esophagus and into the stomach. The scope was advanced through the stomach and to the pylorus. The scope was gently popped through the pylorus and into the duodenal bulb. The scope was flexed and advanced into the second and third portions of the duodenum. The duodenum and duodenal bulb mucosa appeared moderately inflamed. No specific ulcers or visible vessels were seen. Biopsies were taken. The scope was withdrawn into the stomach. There was evidence of mild endoscopic gastritis in the stomach, but no visible vessels or ulcers. Biopsies were taken. The scope was retroflexed and the gastric cardia was examined. The hiatus appeared normal. There was no evidence of hiatal hernia. The scope was then straightened, and withdrawn into the esophagus. The Z-line appeared normal. The distal esophagus appeared normal. Biopsies were taken. The scope was then withdrawn through the esophagus with a tubular view. The scope was then withdrawn from the patient the procedure was concluded. [facility] n was then turned to the colonoscopy portion of the procedure. A rectal exam was performed revealing no abnormalities. The colonoscope was then introduced to the rectum and advanced to the cecum in the usual fashion. The cecum was identified by the appendiceal orifice, the mucosal tri-fold, and the ileocecal valve. The colon was very tortuous, and required multiple maneuvers to reach the cecum safely, including using the stiffener, and anterior abdominal wall pressure. Once we reached the cecum, the terminal ileum was intubated , and traversed for about 15 cm. No mucosal abnormalities were seen in the terminal ileum. scope was then retracted while rotating side to side and examining each mucosal fold. No polyps or mucosal abnormalities were seen. At the conclusion of the procedure retroflexion was performed andsmall grade 1 internal hemorrhoids without stigmata of bleeding were seen. The scope was then withdrawn from the rectum the procedure was concluded. The patient tolerated the procedure well and was transferred to the PACU in stable condition. A total of 40 mg of Versed and 200 micro g of fentanyl were used for the entire procedure. Scope withdrawal time: 7 Sedation minutes: 33 Findings: gastritis (and duodenitis) Specimen(s): other (biopsy of duodenum, stomach, distal esophagus) Complications: none Impression: Normal appearing colon, mild inflammation of the duodenum and stomach Post-procedure Recommendations: Colonscopy in 10 years and Other recommendation (Further recommendations pending biopsy results) Follow up: as needed Disposition: PACU
[2020-06-27] MEDS: LIDOCAINE 4% SOLN 50 ML 20 ML TOP (13:08)
[2020-06-27] MEDS: fentaNYL 250 MCG/5 ML INJ IV (13:25)
[2020-06-27] MEDS: MIDAZOLAM 5 MG/5 ML VIAL IV (13:25)
[2020-06-27 13:46] VITALS: BP 103/61; PULSE 78; RESP 16; TEMP 36.6; O2SAT 100
[2020-06-27 13:50] VITALS: BP 108/61; PULSE 74; RESP 18; O2SAT 100
[2020-06-27 13:55] VITALS: BP 108/63; PULSE 83; RESP 18; O2SAT 100
[2020-06-27 14:00] VITALS: BP 108/55; PULSE 61; RESP 16; O2SAT 100
== END 2020-06-27 14:30 | disposition home or self-care (01) ==
PROVIDERS: Family Provider Family Medicine; PCP Family Medicine; Referring Provider Surgery; Visit Provider Surgery
PROC: 0DJ08ZZ Inspection of Upper Intestinal Tract, Via Natural or Artificial Opening Endoscopic (ICD-10-PCS; CPT 43235; principal; 2020-06-27 13:00)
PROC: 0DJD8ZZ Inspection of Lower Intestinal Tract, Via Natural or Artificial Opening Endoscopic (ICD-10-PCS; CPT 45378; 2020-06-27 13:00)
DX: K29.50 Unspecified chronic gastritis without bleeding (principal); B96.81 Helicobacter pylori [H. pylori] as the cause of diseases classified elsewhere; K29.80 Duodenitis without bleeding; K64.0 First degree hemorrhoids; E03.9 Hypothyroidism, unspecified; Z20.822 Contact with and (suspected) exposure to COVID-19
CPT/HCPCS: 43239; 45378; 87635; 99152; 99153; J2250; J3010

== ENCOUNTER → 2021-06-18 08:34 | Outpatient (CLI) | payer OTHER, MEDICAID, SELFPAY ==
[2021-05-14 12:49] VITALS: BMI 25.0
[2021-06-18 19:38] LABS: Add Manual Diff / Slide Review NO; Basophils Absolute Auto 0 /uL (0-100); Basophils Percent Auto 0.5 % (0-2); Eosinophils Absolute Auto 100 /uL (0-450); Eosinophils Percent Auto 1.2 % (2-4); Hematocrit 43.1 % (41-53); Hemoglobin 14.5 g/dL (13.5-17.5); Lymphocytes Absolute Auto 1300 /uL (1100-4500); Mean Corpuscular HGB Conc 33.6 % (30-36); Mean Corpuscular Hemoglobin 31.1 PG (26-34); Mean Corpuscular Volume 92.5 fL (80-100); Monocytes Absolute Auto 600 /uL (0-900); Neutrophils Absolute Auto 3100 /uL (1500-7000); Neutrophils Percent Auto 61.3 % (50-75); Platelet Count 224 X10^3/uL (150-400); Red Blood Cell Count 4.66 X10^6/uL (4.5-5.9); Red Cell Distribution Width 13.3 % (11.6-14.8); White Blood Cell Count 5.1 X10^3/uL (4.5-11.0)
[2021-06-18 19:55] LABS: Alanine Aminotransferase 27 IU/L (<50); Albumin 4.2 g/dL (3.5-5.0); Albumin Globulin Ratio 1.6 (1.0-2.8); Alkaline Phosphatase 43 U/L (38-126); Aspartate Aminotransferase 33 IU/L (17-59); BUN Creatinine Ratio 16.2 (6-22); Bilirubin Total 0.5 mg/dL (0.2-1.3); Blood Urea Nitrogen 12 mg/dL (9-20); Calcium 9.2 mg/dL (8.4-10.2); Carbon Dioxide 32 mmol/L (22-32); Chloride 102 mmol/L (98-107); Cholesterol 194 mg/dL (140-199); Estimated Glomerular Filt Rate > 60.0 mL/min (>60); Globulin 2.7 g/dL (1.7-4.1); Glucose 94 mg/dL (70-100); HDL Cholesterol 69 mg/dL (40-60); HEMOLYSIS < 15 (0-50); LDL Cholesterol Calculated 108 mg/dL (<100); Lipase 88 U/L (23-300); Potassium 4.2 mmol/L (3.4-5.1); Sodium 139 mmol/L (137-145); Total Protein 6.9 g/dL (6.3-8.2); Triglycerides 87 mg/dL (35-150)
[2021-06-18 20:59] LABS: Free T4, Direct Thyroxine 0.75 ng/dL (0.78-2.19)
== END ==
PROVIDERS: Family Provider Family Medicine; PCP Family Medicine; Visit Provider Physician Assistant
DX: R11.0 Nausea (principal); R10.9 Unspecified abdominal pain; A04.8 Other specified bacterial intestinal infections
CPT/HCPCS: 80053; 80061; 83013; 83690; 84439; 84443; 85025

== ENCOUNTER → 2021-12-05 10:53 | Outpatient (CLI) | payer OTHER, MEDICAID, SELFPAY ==
[2021-05-14 12:49] VITALS: BMI 25.0
[2021-12-05 20:05] LABS: Free T4, Direct Thyroxine 1.75 ng/dL (0.78-2.19)
[2021-12-05 20:19] LABS: TSH w/ Reflex to FT4 0.71 uIU/mL (0.47-4.68)
== END ==
PROVIDERS: Family Provider Family Medicine; PCP Physician Assistant; Visit Provider Physician Assistant
DX: E03.9 Hypothyroidism, unspecified (principal)
CPT/HCPCS: 84439; 84443